=== PATIENT | male | born 1965 | race Caucasian/White ===

== ENCOUNTER 2017-04-09 14:12 | Outpatient (CLI) | payer OTHER ==
[~2017-04-09 14:12] MED LIST: ASPI-1071 PO; ATOR40TA PO; CHOL200012 PO; CLOP75TA35 PO; DOCU-28 PO; HYDR-565 PO; LISI-222 PO; METF500T PO; METO25TA6 PO; MULT-1085 PO; NITR0.4T48 SL; VITA1TAB20 PO
[2017-04-09 14:57] LABS: CLARITY,URINE CLEAR (Clear); COLOR,URINE YELLOW (Yellow); GLUCOSE, URINE NEGATIVE (Neg); KETONES,URINE NEGATIVE (Neg); LEUKOCYTE ESTERASE ,URINE NEGATIVE (Neg); NITRITES, URINE NEGATIVE (Neg); OCCULT BLOOD,URINE TRACE-INTACT (Neg); PROTEIN,URINE NEGATIVE (Neg); UROBILINOGEN,URINE 0.2 E.U/dL (0.2-1.0)
[2017-04-09 15:00] LABS: BASOPHILS # (AUTO) 0.1 X10'3 (0-0.2); BASOPHILS % (AUTO) 0.6 % (0-1); EOSINOPHILS # (AUTO) 0.3 X10'3 (0-0.9); EOSINOPHILS % (AUTO) 3.8 % (0-6); HEMATOCRIT 43.3 % (42.0-52.0); HEMOGLOBIN 15.2 g/dl (14.0-17.9); LYMPHOCYTES # (AUTO) 3.2 X10'3 (1.1-4.8); LYMPHOCYTES % (AUTO) 36.9 % (21-51); MEAN CORPUSCULAR HEMOGLOBIN 32.6 PG (27.0-31.0); MEAN CORPUSCULAR HGB CONC 35.2 % (33.0-36.5); MEAN CORPUSCULAR VOLUME 92.8 FL (78-98); MONOCYTES % (AUTO) 11.2 % (2-12); NEUTROPHILS # (AUTO) 4.2 X10'3 (1.8-7.7); NEUTROPHILS % (AUTO) 47.5 % (42-75); PLATELET COUNT 220 X10'3 (140-440); RED BLOOD COUNT 4.66 X10'6 (4.70-6.10); RED CELL DISTRIBUTION WIDTH 13.7 % (11.5-14.5); WHITE BLOOD COUNT 8.7 X10'3 (4.5-11.0)
[2017-04-09 15:07] LABS: UA COLLECTION TYPE CLN CATCH MIDSTREAM
[2017-04-09 15:21] LABS: MUCUS STRANDS NONE SEEN /LPF (Neg); SQUAMOUS EPITHELIAL CELL,UR FEW /LPF (FEW)
[2017-04-09 15:22] LABS: BACTERIA,URINE NONE SEEN /HPF (Neg); WBC,URINE NONE SEEN /HPF (0-4)
[2017-04-09 15:40] LABS: ALANINE AMINOTRANSFERASE 39 U/L (12-78); ALBUMIN/GLOBULIN RATIO 1.4 (1.1-1.5); ALKALINE PHOSPHATASE 65 IU/L (46-116); ANION GAP 8 (8-16); ASPARTATE AMINO TRANSFERASE 22 U/L (10-37); BILIRUBIN,TOTAL 0.3 MG/DL (0.1-1.0); BLOOD UREA NITROGEN 18 MG/DL (7-18); CALCIUM 8.6 MG/DL (8.5-10.1); CHLORIDE 105 MMOL/L (99-107); CREATININE 1.38 MG/DL (0.60-1.10); GLUCOSE 108 MG/DL (70-104); POTASSIUM 4.3 MMOL/L (3.5-5.1); SODIUM 141 MMOL/L (135-145); TOTAL CARBON DIOXIDE 27.7 MMOL/L (24-32); TOTAL PROTEIN 6.9 G/DL (6.4-8.2); eGFR 54 ML/MIN
== END 2017-04-09 23:59 | disposition home or self-care (01) ==
LOC: LAB 14:12
PROVIDERS: ATTEND Family Medicine
DX: Z00.01 Encounter for general adult medical examination with abnormal findings (principal); Z87.891 Personal history of nicotine dependence
CPT/HCPCS: 36415; 80053; 81001; 82043; 84439; 84443; 85025

== ENCOUNTER 2017-04-30 06:14 | Outpatient (CLI) | payer OTHER ==
[2017-05-01 07:16] LABS: ALANINE AMINOTRANSFERASE 41 U/L (12-78); ALBUMIN 4.2 G/DL (3.4-5.0); ALBUMIN/GLOBULIN RATIO 1.2 (1.1-1.5); ALKALINE PHOSPHATASE 66 IU/L (46-116); ANION GAP 12 (8-16); ASPARTATE AMINO TRANSFERASE 29 U/L (10-37); BILIRUBIN,TOTAL 0.5 MG/DL (0.1-1.0); BLOOD UREA NITROGEN 18 MG/DL (7-18); BUN/CREATININE RATIO 14.1 (5.4-32.0); CALCIUM 9.2 MG/DL (8.5-10.1); CHLORIDE 106 MMOL/L (99-107); CHOLESTEROL 134 MG/DL (0-200); CREATININE 1.28 MG/DL (0.60-1.10); GLUCOSE 137 MG/DL (70-104); HDL CHOLESTEROL 45 MG/DL (35-60); LDL CHOLESTEROL 67 MG/DL (50-100); POTASSIUM 4.5 MMOL/L (3.5-5.1); SODIUM 142 MMOL/L (135-145); TOTAL CARBON DIOXIDE 24.3 MMOL/L (24-32); TOTAL PROTEIN 7.7 G/DL (6.4-8.2); TRIGLYCERIDES 104 MG/DL (20-135); eGFR 59 ML/MIN
== END 2017-04-30 23:59 | disposition home or self-care (01) ==
LOC: LAB 06:14
PROVIDERS: ATTEND Physician Assistant Medical
DX: E78.4 Other hyperlipidemia (principal); E11.9 Type 2 diabetes mellitus without complications; Z87.891 Personal history of nicotine dependence
CPT/HCPCS: 36415; 80053; 80061

== ENCOUNTER 2017-05-22 05:56 | Day surgery (SDC) | payer OTHER ==
[2017-05-21 08:52] LABS: BASOPHILS % (AUTO) 0.5 % (0-1); EOSINOPHILS # (AUTO) 0.3 X10'3 (0-0.9); EOSINOPHILS % (AUTO) 3.9 % (0-6); HEMATOCRIT 44.8 % (42.0-52.0); HEMOGLOBIN 15.4 g/dl (14.0-17.9); LYMPHOCYTES # (AUTO) 2.5 X10'3 (1.1-4.8); LYMPHOCYTES % (AUTO) 28.8 % (21-51); MEAN CORPUSCULAR HEMOGLOBIN 31.9 PG (27.0-31.0); MEAN CORPUSCULAR HGB CONC 34.4 % (33.0-36.5); MEAN CORPUSCULAR VOLUME 92.6 FL (78-98); MEAN PLATELET VOLUME 6.7 FL (7.4-10.4); MONOCYTES # (AUTO) 0.7 X10'3 (0-0.9); MONOCYTES % (AUTO) 8.2 % (2-12); NEUTROPHILS # (AUTO) 5.1 X10'3 (1.8-7.7); NEUTROPHILS % (AUTO) 58.6 % (42-75); PLATELET COUNT 234 X10'3 (140-440); RED BLOOD COUNT 4.84 X10'6 (4.70-6.10); RED CELL DISTRIBUTION WIDTH 13.7 % (11.5-14.5); WHITE BLOOD COUNT 8.8 X10'3 (4.5-11.0)
[2017-05-21 09:01] LABS: ANION GAP 8 (8-16); BLOOD UREA NITROGEN 16 MG/DL (7-18); BUN/CREATININE RATIO 11.2 (5.4-32.0); CALCIUM 8.9 MG/DL (8.5-10.1); CHLORIDE 104 MMOL/L (99-107); CREATININE 1.43 MG/DL (0.60-1.10); GLUCOSE 137 MG/DL (70-104); POTASSIUM 4.5 MMOL/L (3.5-5.1); SODIUM 139 MMOL/L (135-145); TOTAL CARBON DIOXIDE 26.9 MMOL/L (24-32); eGFR 52 ML/MIN
[2017-05-21 09:03] LABS: PARTIAL THROMBOPLASTIN TIME 26 SECONDS (22-32); PROTHROMBIN TIME 10.2 SECONDS (9.0-12.0)
[2017-05-22] VITALS (24 sets, daily range): BP systolic 88–128; BP diastolic 50–77
[~2017-05-22] VITALS: Ht 182.9 cm; Wt 112.8 kg
[2017-05-22] MEDS ORDERED: LORazepam 0.5 MG tablet ONE (07:04)
[2017-05-22] MEDS ORDERED: diphenhydrAMINE 25mg capsule PO ONE (07:04)
[2017-05-22] MEDS ORDERED: heparin 1,000unit/ml 10ml vial 10 ML ONE (07:32)
[2017-05-22] MEDS ORDERED: nitroGLYCERIN-Tridil 50MG/D5W 250 ML IV ONE (07:32)
[2017-05-22] MEDS ORDERED: midazolam 2 mg/2 ml injection ONE (07:32)
[2017-05-22] MEDS ORDERED: fentaNYL/PF 50MCG/1 ML 2ML syringe ONE (07:32)
[2017-05-22] MEDS ORDERED: iohexol 350 MG/ML 50ML vial IV ONE (07:32)
[2017-05-22] MEDS ORDERED: LIDOcaine 1%/PF (10mg/ml) 5ml vial ONE (07:32)
[2017-05-22] MEDS ORDERED: iohexol 350MG/ML 100ml bottle IV ONE ×2 (07:33→08:51)
[2017-05-22] MEDS ORDERED: heparin 1,000 UNITS/NS 500ml 500 ML ONE (08:51)
[2017-05-22] MEDS ORDERED: atropine 0.1mg/ml 10ml syringe ONE (08:58)
[2017-05-22] MEDS ORDERED: normal saline 1000ml 1,000 ML IV SCH ×2 (09:20→11:15)
[2017-05-22] MEDS ORDERED: diphenhydrAMINE 25mg capsule PO PRN ×2 (09:20→11:15)
[2017-05-22] MEDS ORDERED: LORazepam 0.5 MG tablet PO PRN ×2 (09:20→11:15)
[2017-05-22] MEDS ORDERED: sod bicarbonate 150mEq in D5W 1,150 ML IV ONE (09:20)
[2017-05-22] MEDS ORDERED: clopidogrel 300mg tablet ONE (09:49)
[2017-05-22] MEDS ORDERED: acetaminophen 325mg tablet PO PRN (11:00)
[2017-05-22] MEDS ORDERED: HYDROcodone/acetaminophen 10/325mg tab PO PRN (11:00)
[2017-05-22] MEDS ORDERED: aspirin 325mg tablet PO ONE (11:00)
[2017-05-22] MEDS ORDERED: OXAZEpam 15mg capsule PO PRN (11:00)
[2017-05-22] MEDS ORDERED: cyclobenzaprine 10mg tablet PO PRN (11:00)
[2017-05-22] MEDS ORDERED: proCHLORperazine 10 MG/2 ml inj IV PRN (11:00)
[2017-05-22] MEDS ORDERED: CLOPIDOGREL BISULFATE 300MG TAB PO ONE (11:00)
[2017-05-22] MEDS ORDERED: magnesium hydroxide 30ml (MOM) UD suspension PO PRN (11:00)
[2017-05-22] MEDS ORDERED: ESCI10TA PO (14:14)
[2017-05-22] MEDS ORDERED: RANO500T3 PO (14:14)
[2017-05-22] MEDS ORDERED: ISOS60TA4 PO (14:14)
[2017-05-22] MEDS ORDERED: METF500T PO (14:14)
[2017-05-22] MEDS ORDERED: docusate sod 100mg capsule PO SCH (20:00)
[2017-05-23] MEDS ORDERED: clopidogrel 75mg tablet PO SCH (08:00)
[2017-05-23] MEDS ORDERED: aspirin 325mg tablet PO SCH (08:30)
== END 2017-05-22 18:50 | disposition home or self-care (01) ==
LOC: SSTAY O 05:56
PROVIDERS: ATTEND Internal Medicine Cardiovascular Disease
DX: I25.119 Atherosclerotic heart disease of native coronary artery with unspecified angina pectoris (principal); I10 Essential (primary) hypertension; E78.5 Hyperlipidemia, unspecified; E11.9 Type 2 diabetes mellitus without complications; I25.2 Old myocardial infarction; E66.3 Overweight; K21.9 Gastro-esophageal reflux disease without esophagitis; Z87.891 Personal history of nicotine dependence; Z90.49 Acquired absence of other specified parts of digestive tract; Z79.84 Long term (current) use of oral hypoglycemic drugs; Z79.82 Long term (current) use of aspirin; Z86.74 Personal history of sudden cardiac arrest; Z95.5 Presence of coronary angioplasty implant and graft; Z79.899 Other long term (current) drug therapy; Z98.890 Other specified postprocedural states; Z68.33 Body mass index [BMI] 33.0-33.9, adult; Z88.6 Allergy status to analgesic agent; Z88.1 Allergy status to other antibiotic agents
CPT/HCPCS: 36415; 80048; 82948; 85025; 85347; 85610; 85730; 92920; 93005; 93458; 99152; 99153; A6257; C1725; C1769; C1874; C1887; J1644; J2001; J2250; J3010; J3490; J7030; Q0163; Q9967; A4620; J0461

== ENCOUNTER 2017-08-01 11:14 | Outpatient (CLI) | payer OTHER ==
[~2017-08-01 11:14] MED LIST changes: -DOCU-28 PO; +ESCI10TA PO; +ISOS60TA4 PO; +RANO500T3 PO
[2017-08-01 13:23] LABS: RHEUM FACTOR QUAL REFLEX TITER NEGATIVE (Neg)
== END 2017-08-01 23:59 | disposition home or self-care (01) ==
LOC: LAB 11:14
PROVIDERS: ATTEND Family Medicine
DX: E11.9 Type 2 diabetes mellitus without complications (principal); M19.90 Unspecified osteoarthritis, unspecified site; Z87.891 Personal history of nicotine dependence
CPT/HCPCS: 36415; 84550; 85651; 86038; 86430

== ENCOUNTER 2017-11-12 06:02 | Outpatient (CLI) | payer OTHER ==
[2017-11-12 08:27] LABS: BASOPHILS % (AUTO) 0.5 % (0-1); EOSINOPHILS # (AUTO) 0.2 X10'3 (0-0.9); EOSINOPHILS % (AUTO) 3.2 % (0-6); HEMATOCRIT 43.1 % (42.0-52.0); HEMOGLOBIN 14.8 g/dl (14.0-17.9); LYMPHOCYTES # (AUTO) 2.3 X10'3 (1.1-4.8); LYMPHOCYTES % (AUTO) 29.9 % (21-51); MEAN CORPUSCULAR HGB CONC 34.2 % (33.0-36.5); MEAN CORPUSCULAR VOLUME 93.6 FL (78-98); MEAN PLATELET VOLUME 7.3 FL (7.4-10.4); MONOCYTES # (AUTO) 0.7 X10'3 (0-0.9); MONOCYTES % (AUTO) 9.1 % (2-12); NEUTROPHILS # (AUTO) 4.3 X10'3 (1.8-7.7); NEUTROPHILS % (AUTO) 57.3 % (42-75); PLATELET COUNT 266 X10'3 (140-440); RED BLOOD COUNT 4.61 X10'6 (4.70-6.10); WHITE BLOOD COUNT 7.6 X10'3 (4.5-11.0)
[2017-11-12 08:30] LABS: CLARITY,URINE CLEAR (Clear); COLOR,URINE YELLOW (Yellow); GLUCOSE, URINE NEGATIVE (Neg); KETONES,URINE NEGATIVE (Neg); LEUKOCYTE ESTERASE ,URINE NEGATIVE (Neg); NITRITES, URINE NEGATIVE (Neg); OCCULT BLOOD,URINE TRACE-INTACT (Neg); PROTEIN,URINE NEGATIVE (Neg); UROBILINOGEN,URINE 0.2 E.U/dL (0.2-1.0)
[2017-11-12 08:37] LABS: UA COLLECTION TYPE CLN CATCH MIDSTREAM
[2017-11-12 08:38] LABS: BACTERIA,URINE NONE SEEN /HPF (Neg); HEMOGLOBIN A1C 6.2 % (4.5-6.2); MUCUS STRANDS NONE SEEN /LPF (Neg); RBC,URINE 0-2 /HPF (0-2); SQUAMOUS EPITHELIAL CELL,UR FEW /LPF (FEW); WBC,URINE NONE SEEN /HPF (0-4)
[2017-11-12 08:49] LABS: ALANINE AMINOTRANSFERASE 30 U/L (12-78); ALBUMIN 3.9 G/DL (3.4-5.0); ALBUMIN/GLOBULIN RATIO 1.3 (1.1-1.5); ALKALINE PHOSPHATASE 66 IU/L (46-116); ANION GAP 7 (8-16); ASPARTATE AMINO TRANSFERASE 20 U/L (10-37); BILIRUBIN,TOTAL 0.5 MG/DL (0.1-1.0); BLOOD UREA NITROGEN 17 MG/DL (7-18); BUN/CREATININE RATIO 12.2 (5.4-32.0); CALCIUM 8.7 MG/DL (8.5-10.1); CHLORIDE 106 MMOL/L (99-107); CHOL/HDL RATIO 2.7 (0.00-4.99); CHOLESTEROL 119 MG/DL (0-200); CREATININE 1.39 MG/DL (0.60-1.10); GLUCOSE 124 MG/DL (70-104); HDL CHOLESTEROL 44 MG/DL (35-60); LDL CHOLESTEROL 67 MG/DL (50-100); POTASSIUM 4.2 MMOL/L (3.5-5.1); SODIUM 140 MMOL/L (135-145); TOTAL CARBON DIOXIDE 26.7 MMOL/L (24-32); TOTAL PROTEIN 6.9 G/DL (6.4-8.2); TRIGLYCERIDES 81 MG/DL (20-135); eGFR 53 ML/MIN
[2017-11-13 16:04] LABS: MICROALB/CRT, RATIO 3.8 mg/g creat (0.0-30.0)
== END 2017-11-12 23:59 | disposition home or self-care (01) ==
LOC: LAB 06:02
PROVIDERS: ATTEND Family Medicine
DX: Z00.01 Encounter for general adult medical examination with abnormal findings (principal); I25.2 Old myocardial infarction; E11.9 Type 2 diabetes mellitus without complications; Z87.891 Personal history of nicotine dependence; Z79.82 Long term (current) use of aspirin; Z79.84 Long term (current) use of oral hypoglycemic drugs; Z79.899 Other long term (current) drug therapy
CPT/HCPCS: 36415; 80053; 80061; 81001; 82043; 82570; 83036; 84439; 84443; 85025

== ENCOUNTER 2018-01-21 07:44 | Outpatient (CLI) | payer OTHER ==
[~2018-01-21 07:44] MED LIST changes: +HYDR-4353 PO; -HYDR-565 PO
[2018-01-21 08:18] LABS: BASOPHILS % (AUTO) 0.3 % (0-1); EOSINOPHILS # (AUTO) 0.7 X10'3 (0-0.9); EOSINOPHILS % (AUTO) 8.1 % (0-6); HEMATOCRIT 46.5 % (42.0-52.0); HEMOGLOBIN 15.4 g/dl (14.0-17.9); LYMPHOCYTES # (AUTO) 2.2 X10'3 (1.1-4.8); LYMPHOCYTES % (AUTO) 27.2 % (21-51); MEAN CORPUSCULAR HEMOGLOBIN 31.9 PG (27.0-31.0); MEAN CORPUSCULAR HGB CONC 33.2 % (33.0-36.5); MEAN CORPUSCULAR VOLUME 96.1 FL (78-98); MEAN PLATELET VOLUME 6.8 FL (7.4-10.4); MONOCYTES # (AUTO) 1.1 X10'3 (0-0.9); MONOCYTES % (AUTO) 13.1 % (2-12); NEUTROPHILS # (AUTO) 4.2 X10'3 (1.8-7.7); NEUTROPHILS % (AUTO) 51.3 % (42-75); PLATELET COUNT 247 X10'3 (140-440); RED BLOOD COUNT 4.84 X10'6 (4.70-6.10); RED CELL DISTRIBUTION WIDTH 13.9 % (11.5-14.5); WHITE BLOOD COUNT 8.2 X10'3 (4.5-11.0)
[2018-01-21 08:28] LABS: CLARITY,URINE CLEAR (Clear); COLOR,URINE YELLOW (Yellow); GLUCOSE, URINE NEGATIVE (Neg); KETONES,URINE NEGATIVE (Neg); LEUKOCYTE ESTERASE ,URINE NEGATIVE (Neg); NITRITES, URINE NEGATIVE (Neg); OCCULT BLOOD,URINE NEGATIVE (Neg); PROTEIN,URINE NEGATIVE (Neg); UROBILINOGEN,URINE 0.2 E.U/dL (0.2-1.0)
[2018-01-21 08:32] LABS: HEMOGLOBIN A1C 6.2 % (4.5-6.2)
[2018-01-21 08:35] LABS: UA COLLECTION TYPE VOIDED
[2018-01-21 08:44] LABS: ALANINE AMINOTRANSFERASE 32 U/L (12-78); ALBUMIN 3.7 G/DL (3.4-5.0); ALBUMIN/GLOBULIN RATIO 1.1 (1.1-1.5); ALKALINE PHOSPHATASE 67 IU/L (46-116); ANION GAP 7 (8-16); ASPARTATE AMINO TRANSFERASE 26 U/L (10-37); BILIRUBIN,TOTAL 0.4 MG/DL (0.1-1.0); BLOOD UREA NITROGEN 14 MG/DL (7-18); BUN/CREATININE RATIO 10.2 (5.4-32.0); CHLORIDE 104 MMOL/L (99-107); CHOL/HDL RATIO 3.2 (0.00-4.99); CHOLESTEROL 141 MG/DL (0-200); CREATININE 1.37 MG/DL (0.60-1.10); GLUCOSE 131 MG/DL (70-104); HDL CHOLESTEROL 44 MG/DL (35-60); LDL CHOLESTEROL 82 MG/DL (50-100); POTASSIUM 4.2 MMOL/L (3.5-5.1); SODIUM 143 MMOL/L (135-145); TOTAL CARBON DIOXIDE 32.5 MMOL/L (24-32); TOTAL PROTEIN 7.1 G/DL (6.4-8.2); TRIGLYCERIDES 121 MG/DL (20-135); eGFR 54 ML/MIN
[2018-01-22 13:18] LABS: MICROALB/CRT, RATIO <4.3 mg/g creat (0.0-30.0)
== END 2018-01-21 23:59 | disposition home or self-care (01) ==
LOC: LAB 07:44
PROVIDERS: ATTEND Family Medicine
DX: E11.9 Type 2 diabetes mellitus without complications (principal); I25.2 Old myocardial infarction; Z88.1 Allergy status to other antibiotic agents; Z88.5 Allergy status to narcotic agent
CPT/HCPCS: 36415; 80053; 80061; 81003; 82043; 82570; 83036; 84439; 84443; 85025

== ENCOUNTER 2018-07-23 07:40 | Outpatient (CLI) | payer OTHER ==
[2018-07-23 08:30] LABS: BASOPHILS # (AUTO) 0.1 X10'3 (0-0.2); EOSINOPHILS # (AUTO) 0.4 X10'3 (0-0.9); EOSINOPHILS % (AUTO) 4.9 % (0-6); HEMATOCRIT 45.4 % (42.0-52.0); HEMOGLOBIN 15.7 g/dl (14.0-17.9); LYMPHOCYTES # (AUTO) 2.2 X10'3 (1.1-4.8); LYMPHOCYTES % (AUTO) 26.6 % (21-51); MEAN CORPUSCULAR HEMOGLOBIN 32.5 PG (27.0-31.0); MEAN CORPUSCULAR HGB CONC 34.5 g/dL (33.0-36.5); MEAN CORPUSCULAR VOLUME 94.3 FL (78-98); MONOCYTES % (AUTO) 11.9 % (2-12); NEUTROPHILS # (AUTO) 4.7 X10'3 (1.8-7.7); NEUTROPHILS % (AUTO) 55.6 % (42-75); PLATELET COUNT 258 X10'3 (140-440); RED BLOOD COUNT 4.82 X10'6 (4.70-6.10); RED CELL DISTRIBUTION WIDTH 13.4 % (11.5-14.5); WHITE BLOOD COUNT 8.4 X10'3 (4.5-11.0)
[2018-07-23 08:34] LABS: CLARITY,URINE CLEAR (Clear); COLOR,URINE YELLOW (Yellow); GLUCOSE, URINE NEGATIVE (Neg); KETONES,URINE NEGATIVE (Neg); LEUKOCYTE ESTERASE ,URINE NEGATIVE (Neg); NITRITES, URINE NEGATIVE (Neg); OCCULT BLOOD,URINE NEGATIVE (Neg); PROTEIN,URINE NEGATIVE (Neg); UROBILINOGEN,URINE 0.2 E.U/dL (0.2-1.0)
[2018-07-23 08:46] LABS: UA COLLECTION TYPE NON-SPECIFIED
[2018-07-23 08:51] LABS: ALANINE AMINOTRANSFERASE 36 U/L (12-78); ALBUMIN/GLOBULIN RATIO 1.2 (1.1-1.5); ALKALINE PHOSPHATASE 74 IU/L (46-116); ANION GAP 7 (8-16); ASPARTATE AMINO TRANSFERASE 23 U/L (10-37); BILIRUBIN,TOTAL 0.5 MG/DL (0.1-1.0); BLOOD UREA NITROGEN 17 MG/DL (7-18); BUN/CREATININE RATIO 13.1 (5.4-32.0); CALCIUM 8.8 MG/DL (8.5-10.1); CHLORIDE 104 MMOL/L (99-107); CHOL/HDL RATIO 3.3 (0.00-4.99); CHOLESTEROL 127 MG/DL (0-200); GLUCOSE 134 MG/DL (70-104); HDL CHOLESTEROL 38 MG/DL (35-60); LDL CHOLESTEROL 76 MG/DL (50-100); POTASSIUM 4.3 MMOL/L (3.5-5.1); SODIUM 139 MMOL/L (135-145); TOTAL CARBON DIOXIDE 27.7 MMOL/L (24-32); TOTAL PROTEIN 7.4 G/DL (6.4-8.2); TRIGLYCERIDES 117 MG/DL (20-135); eGFR 57 ML/MIN
[2018-07-23 09:30] LABS: HEMOGLOBIN A1C 6.2 % (4.5-6.2)
== END 2018-07-23 23:59 | disposition home or self-care (01) ==
LOC: LAB 07:40
PROVIDERS: ATTEND Family Medicine
DX: I10 Essential (primary) hypertension (principal); E11.9 Type 2 diabetes mellitus without complications; E78.5 Hyperlipidemia, unspecified; R06.02 Shortness of breath
CPT/HCPCS: 36415; 80053; 80061; 81003; 82043; 82570; 83036; 84402; 84403; 85025

== ENCOUNTER 2018-07-26 14:48 | Outpatient (CLI) | payer OTHER | END 2018-07-26 23:59 | disposition home or self-care (01) | LOC: CARD DIAG 14:48 | PROVIDERS: ATTEND Internal Medicine Cardiovascular Disease | DX: I25.10 Atherosclerotic heart disease of native coronary artery without angina pectoris (principal) | CPT/HCPCS: 93306 ==

== ENCOUNTER 2018-09-18 07:56 | Outpatient (CLI) | payer OTHER ==
[~2018-09-18] VITALS: Ht 182.9 cm; Wt 52.6 kg
[2018-09-18] VITALS (10 sets, daily range): BP systolic 108–121; BP diastolic 61–69
[2018-09-18] MEDS ORDERED: normal saline 500ml IV soln 500 ML IV ONE (08:40)
[2018-09-18] MEDS ORDERED: atropine 0.1mg/ml 10ml syringe IV PRN (08:40)
[2018-09-18] MEDS ORDERED: nitroGLYCERIN 0.4mg SUBLingual tab SL PRN (08:40)
[2018-09-18] MEDS ORDERED: regadenoson 0.4mg/5ml syringe IV ONE (08:40)
[2018-09-18] MEDS ORDERED: aminophylline 250mg/10ml inj. IV PRN (08:40)
[2018-09-18] MEDS ORDERED: metoprolol tartrate 1mg/ml inj IV PRN (08:40)
[2018-09-18] MEDS ORDERED: aminophylline inj. 10 ML IV ONE (09:23)
== END 2018-09-18 23:59 | disposition home or self-care (01) ==
LOC: RAD 07:56
PROVIDERS: ATTEND Internal Medicine Cardiovascular Disease
DX: R07.9 Chest pain, unspecified (principal); E11.9 Type 2 diabetes mellitus without complications; Z88.5 Allergy status to narcotic agent; Z88.1 Allergy status to other antibiotic agents; Z95.5 Presence of coronary angioplasty implant and graft; Z87.891 Personal history of nicotine dependence
CPT/HCPCS: 78452; 93017; A9500; J0280; J2785; J7040

== ENCOUNTER 2018-11-12 08:51 | Outpatient (CLI) | payer OTHER | END 2018-11-12 23:59 | disposition home or self-care (01) | LOC: RAD 08:51 | PROVIDERS: ATTEND Family Medicine | DX: M25.462 Effusion, left knee (principal); M76.892 Other specified enthesopathies of left lower limb, excluding foot; M81.0 Age-related osteoporosis without current pathological fracture; E11.9 Type 2 diabetes mellitus without complications; Z87.891 Personal history of nicotine dependence | CPT/HCPCS: 73560 ==

== ENCOUNTER 2019-02-18 08:50 | Outpatient (CLI) | payer OTHER ==
[2019-02-18 09:43] LABS: CLARITY,URINE CLEAR (Clear); COLOR,URINE YELLOW (Yellow); GLUCOSE, URINE NEGATIVE (Neg); KETONES,URINE NEGATIVE (Neg); LEUKOCYTE ESTERASE ,URINE NEGATIVE (Neg); NITRITES, URINE NEGATIVE (Neg); OCCULT BLOOD,URINE NEGATIVE (Neg); PH,URINE 6.5 (4.8-8.0); PROTEIN,URINE NEGATIVE (Neg); UROBILINOGEN,URINE 0.2 E.U/dL (0.2-1.0)
[2019-02-18 09:45] LABS: BASOPHILS # (AUTO) 0.1 X10'3 (0-0.2); BASOPHILS % (AUTO) 0.7 % (0-1); EOSINOPHILS # (AUTO) 0.3 X10'3 (0-0.9); EOSINOPHILS % (AUTO) 4.3 % (0-6); HEMOGLOBIN 16.7 g/dl (14.0-17.9); LYMPHOCYTES # (AUTO) 2.7 X10'3 (1.1-4.8); LYMPHOCYTES % (AUTO) 33.8 % (21-51); MEAN CORPUSCULAR HEMOGLOBIN 31.7 PG (27.0-31.0); MEAN CORPUSCULAR VOLUME 93.4 FL (78-98); MEAN PLATELET VOLUME 6.9 FL (7.4-10.4); MONOCYTES # (AUTO) 0.7 X10'3 (0-0.9); MONOCYTES % (AUTO) 8.8 % (2-12); NEUTROPHILS # (AUTO) 4.2 X10'3 (1.8-7.7); NEUTROPHILS % (AUTO) 52.4 % (42-75); PLATELET COUNT 258 X10'3 (140-440); RED BLOOD COUNT 5.25 X10'6 (4.70-6.10); RED CELL DISTRIBUTION WIDTH 13.4 % (11.5-14.5)
[2019-02-18 09:47] LABS: UA COLLECTION TYPE CLN CATCH MIDSTREAM
[2019-02-18 10:06] LABS: ALANINE AMINOTRANSFERASE 34 U/L (12-78); ALBUMIN 3.9 G/DL (3.4-5.0); ALBUMIN/GLOBULIN RATIO 1.1 (1.1-1.5); ALKALINE PHOSPHATASE 80 IU/L (46-116); ANION GAP 6 (8-16); ASPARTATE AMINO TRANSFERASE 22 U/L (10-37); BILIRUBIN,TOTAL 0.4 MG/DL (0.1-1.0); BLOOD UREA NITROGEN 16 MG/DL (7-18); CALCIUM 9.1 MG/DL (8.5-10.1); CHLORIDE 106 MMOL/L (99-107); CHOLESTEROL 155 MG/DL (0-200); CREATININE 1.45 MG/DL (0.60-1.10); GLUCOSE 146 MG/DL (70-104); HDL CHOLESTEROL 39 MG/DL (35-60); LDL CHOLESTEROL 103 MG/DL (50-100); POTASSIUM 4.4 MMOL/L (3.5-5.1); SODIUM 141 MMOL/L (135-145); TOTAL CARBON DIOXIDE 28.8 MMOL/L (24-32); TOTAL PROTEIN 7.3 G/DL (6.4-8.2); TRIGLYCERIDES 108 MG/DL (20-135); eGFR 51 ML/MIN
[2019-02-18 10:16] LABS: HEMOGLOBIN A1C 6.5 % (4.5-6.2)
[2019-02-19 05:51] LABS: MICROALB/CRT, RATIO 6.6 mg/g creat (0.0-30.0)
== END 2019-02-18 23:59 | disposition home or self-care (01) ==
LOC: LAB 08:50
PROVIDERS: ATTEND Family Medicine
DX: E78.5 Hyperlipidemia, unspecified (principal); E11.9 Type 2 diabetes mellitus without complications; I10 Essential (primary) hypertension; I25.2 Old myocardial infarction; Z88.5 Allergy status to narcotic agent; Z88.8 Allergy status to other drugs, medicaments and biological substances
CPT/HCPCS: 36415; 80053; 80061; 81003; 82043; 82570; 83036; 85025

== ENCOUNTER 2019-04-21 08:26 | Day surgery (SDC) | payer OTHER ==
[~2019-04-21] VITALS: Ht 180.3 cm; Wt 117.3 kg
[2019-04-21] MEDS ORDERED: fentaNYL/PF 50MCG/1 ML 2ML syringe ONE ×2 (08:38→10:22)
[2019-04-21] MEDS ORDERED: MIDAZolam 5mg/5ml vial ONE (08:38)
[2019-04-21 08:39] VITALS: BP 126/67
[2019-04-21] MEDS ORDERED: HYDR-4383 PO (08:59)
[2019-04-21] MEDS ORDERED: ISOS30TA9 PO (09:01)
[2019-04-21 10:37] VITALS: BP 115/68
[2019-04-21 10:47] VITALS: BP 107/68
[2019-04-21 10:57] VITALS: BP 109/68
[2019-04-21 11:07] VITALS: BP 122/55
== END 2019-04-21 11:17 | disposition home or self-care (01) ==
LOC: GI LAB 08:26
PROVIDERS: ATTEND Internal Medicine Gastroenterology
DX: D12.0 Benign neoplasm of cecum (principal); Z86.010 Personal history of colon polyps; K64.8 Other hemorrhoids; K57.30 Diverticulosis of large intestine without perforation or abscess without bleeding
CPT/HCPCS: 45380; J2250; J3010; J7040; 99152; 99153; A4620

== ENCOUNTER 2019-08-26 08:01 | Outpatient (CLI) | payer BC ==
[~2019-08-26 08:01] MED LIST changes: -HYDR-4353 PO; +HYDR-4383 PO; +ISOS30TA9 PO; -ISOS60TA4 PO
[2019-08-26 08:39] LABS: BASOPHILS # (AUTO) 0.1 X10'3 (0-0.2); EOSINOPHILS # (AUTO) 0.4 X10'3 (0-0.9); EOSINOPHILS % (AUTO) 4.1 % (0-6); HEMATOCRIT 47.6 % (42.0-52.0); LYMPHOCYTES # (AUTO) 2.8 X10'3 (1.1-4.8); LYMPHOCYTES % (AUTO) 30.3 % (21-51); MEAN CORPUSCULAR HEMOGLOBIN 31.6 PG (27.0-31.0); MEAN CORPUSCULAR HGB CONC 33.5 g/dL (33.0-36.5); MEAN CORPUSCULAR VOLUME 94.4 FL (78-98); MONOCYTES # (AUTO) 0.9 X10'3 (0-0.9); NEUTROPHILS % (AUTO) 54.6 % (42-75); PLATELET COUNT 239 X10'3 (140-440); RED BLOOD COUNT 5.04 X10'6 (4.70-6.10); RED CELL DISTRIBUTION WIDTH 13.4 % (11.5-14.5); WHITE BLOOD COUNT 9.2 X10'3 (4.5-11.0)
[2019-08-26 08:44] LABS: CLARITY,URINE CLEAR (Clear); COLOR,URINE YELLOW (Yellow); GLUCOSE, URINE NEGATIVE (Neg); KETONES,URINE NEGATIVE (Neg); LEUKOCYTE ESTERASE ,URINE NEGATIVE (Neg); NITRITES, URINE NEGATIVE (Neg); OCCULT BLOOD,URINE TRACE-INTACT (Neg); PROTEIN,URINE NEGATIVE (Neg); UROBILINOGEN,URINE 0.2 E.U/dL (0.2-1.0)
[2019-08-26 08:45] LABS: UA COLLECTION TYPE CLN CATCH MIDSTREAM
[2019-08-26 08:46] LABS: SQUAMOUS EPITHELIAL CELL,UR FEW /LPF (FEW)
[2019-08-26 08:47] LABS: BACTERIA,URINE 1+ /HPF (Neg); RBC,URINE 0-2 /HPF (0-2); WBC,URINE 0-4 /HPF (0-4)
[2019-08-26 08:48] LABS: HEMOGLOBIN A1C 6.5 % (4.5-6.2)
[2019-08-26 08:54] LABS: ALANINE AMINOTRANSFERASE 33 U/L (12-78); ALBUMIN/GLOBULIN RATIO 1.2 (1.1-1.5); ALKALINE PHOSPHATASE 68 IU/L (46-116); ANION GAP 8 (8-16); ASPARTATE AMINO TRANSFERASE 22 U/L (10-37); BILIRUBIN,TOTAL 0.4 MG/DL (0.1-1.0); BLOOD UREA NITROGEN 20 MG/DL (7-18); BUN/CREATININE RATIO 14.8 (5.4-32.0); CALCIUM 8.8 MG/DL (8.5-10.1); CHLORIDE 107 MMOL/L (99-107); CREATININE 1.35 MG/DL (0.60-1.10); GLUCOSE 133 MG/DL (70-104); POTASSIUM 4.7 MMOL/L (3.5-5.1); SODIUM 141 MMOL/L (135-145); TOTAL CARBON DIOXIDE 25.6 MMOL/L (24-32); TOTAL PROTEIN 7.3 G/DL (6.4-8.2); eGFR 55 ML/MIN
== END 2019-08-26 23:59 | disposition home or self-care (01) ==
LOC: LAB 08:01
PROVIDERS: ATTEND Family Medicine
DX: E11.9 Type 2 diabetes mellitus without complications (principal)
CPT/HCPCS: 36415; 80053; 81001; 82043; 82570; 83036; 85025

== ENCOUNTER → 2019-09-05 | Outpatient (CLI) | payer BC | END | disposition home or self-care (01) | LOC: CARD DIAG 12:35 | PROVIDERS: ATTEND Internal Medicine Cardiovascular Disease | DX: I35.8 Other nonrheumatic aortic valve disorders (principal); R53.83 Other fatigue | CPT/HCPCS: 93306 ==

== ENCOUNTER 2019-09-11 07:36 | Outpatient (CLI) | payer BC ==
[2019-09-11 08:17] LABS: CHOL/HDL RATIO 3.5 (0.00-4.99); CHOLESTEROL 124 MG/DL (0-200); HDL CHOLESTEROL 35 MG/DL (35-60); LDL CHOLESTEROL 73 MG/DL (50-100); TRIGLYCERIDES 102 MG/DL (20-135)
[2019-09-11 08:33] LABS: ANION GAP 7 (8-16); BILIRUBIN,TOTAL 0.4 MG/DL (0.1-1.0); BLOOD UREA NITROGEN 20 MG/DL (7-18); BUN/CREATININE RATIO 14.4 (5.4-32.0); CALCIUM 8.4 MG/DL (8.5-10.1); CHLORIDE 106 MMOL/L (99-107); CREATININE 1.39 MG/DL (0.60-1.10); GLUCOSE 149 MG/DL (70-104); POTASSIUM 4.4 MMOL/L (3.5-5.1); SODIUM 139 MMOL/L (135-145); TOTAL CARBON DIOXIDE 26.3 MMOL/L (24-32); eGFR 53 ML/MIN
[2019-09-11 08:34] LABS: ALANINE AMINOTRANSFERASE 34 U/L (12-78); ALBUMIN 3.8 G/DL (3.4-5.0); ALBUMIN/GLOBULIN RATIO 1.2 (1.1-1.5); ALKALINE PHOSPHATASE 68 IU/L (46-116); ASPARTATE AMINO TRANSFERASE 23 U/L (10-37)
== END 2019-09-11 23:59 | disposition home or self-care (01) ==
LOC: LAB 07:36
PROVIDERS: ATTEND Physician Assistant Medical
DX: E78.5 Hyperlipidemia, unspecified (principal)
CPT/HCPCS: 36415; 80053; 80061

== ENCOUNTER 2019-09-11 07:39 | Outpatient (CLI) | payer BC ==
[2019-09-11] VITALS (7 sets, daily range): BP systolic 101–119; BP diastolic 54–78
[~2019-09-11] VITALS: Ht 180.3 cm; Wt 116.0 kg
[2019-09-11] MEDS ORDERED: regadenoson 0.4mg/5ml syringe IV PRN (08:30)
[2019-09-11] MEDS ORDERED: nitroGLYCERIN 0.4mg SUBLingual tab SL PRN (08:30)
[2019-09-11] MEDS ORDERED: normal saline 500ml IV soln 500 ML IV ONE (08:30)
[2019-09-11] MEDS ORDERED: metoprolol tartrate 1mg/ml inj IV PRN (08:30)
[2019-09-11] MEDS ORDERED: aminophylline 250mg/10ml inj. IV PRN (08:30)
[2019-09-11] MEDS ORDERED: regadenoson 0.4mg/5ml syringe IV ONE (08:30)
== END 2019-09-11 23:59 | disposition home or self-care (01) ==
LOC: RAD 07:39
PROVIDERS: ATTEND Internal Medicine Cardiovascular Disease
DX: R07.9 Chest pain, unspecified (principal)
CPT/HCPCS: 78452; 93017; A9500; J0280; J2785; J7040

== ENCOUNTER 2020-03-09 09:30 | Outpatient (CLI) | payer BC ==
[~2020-03-09 09:30] MED LIST changes: +CLOP75TA34 PO; -CLOP75TA35 PO
[2020-03-09 10:27] LABS: CLARITY,URINE CLEAR (Clear); COLOR,URINE YELLOW (Yellow); GLUCOSE, URINE NEGATIVE (Neg); KETONES,URINE NEGATIVE (Neg); LEUKOCYTE ESTERASE ,URINE NEGATIVE (Neg); NITRITES, URINE NEGATIVE (Neg); OCCULT BLOOD,URINE NEGATIVE (Neg); PH,URINE 5.5 (4.8-8.0); PROTEIN,URINE NEGATIVE (Neg); UROBILINOGEN,URINE 0.2 E.U/dL (0.2-1.0)
[2020-03-09 10:39] LABS: UA COLLECTION TYPE CLN CATCH MIDSTREAM
[2020-03-09 10:58] LABS: BASOPHILS # (AUTO) 0.1 X10'3 (0-0.2); EOSINOPHILS # (AUTO) 0.3 X10'3 (0-0.9); EOSINOPHILS % (AUTO) 4.5 % (0-6); HEMATOCRIT 46.7 % (42.0-52.0); HEMOGLOBIN 15.8 g/dl (14.0-17.9); LYMPHOCYTES # (AUTO) 2.3 X10'3 (1.1-4.8); MEAN CORPUSCULAR HEMOGLOBIN 32.3 PG (27.0-31.0); MEAN CORPUSCULAR VOLUME 95.1 FL (78-98); MONOCYTES # (AUTO) 0.7 X10'3 (0-0.9); MONOCYTES % (AUTO) 8.6 % (2-12); NEUTROPHILS # (AUTO) 4.5 X10'3 (1.8-7.7); NEUTROPHILS % (AUTO) 56.9 % (42-75); PLATELET COUNT 262 X10'3 (140-440); RED CELL DISTRIBUTION WIDTH 13.8 % (11.5-14.5); WHITE BLOOD COUNT 7.8 X10'3 (4.5-11.0)
[2020-03-09 11:45] LABS: ALANINE AMINOTRANSFERASE 38 U/L (12-78); ALBUMIN 3.9 G/DL (3.4-5.0); ALBUMIN/GLOBULIN RATIO 1.2 (1.1-1.5); ALKALINE PHOSPHATASE 72 IU/L (46-116); ANION GAP 8 (8-16); ASPARTATE AMINO TRANSFERASE 24 U/L (10-37); BILIRUBIN,TOTAL 0.4 MG/DL (0.1-1.0); BLOOD UREA NITROGEN 15 MG/DL (7-18); BUN/CREATININE RATIO 10.9 (5.4-32.0); CALCIUM 8.8 MG/DL (8.5-10.1); CHLORIDE 107 MMOL/L (99-107); CHOL/HDL RATIO 3.4 (0.00-4.99); CHOLESTEROL 131 MG/DL (0-200); CREATININE 1.38 MG/DL (0.60-1.10); GLUCOSE 161 MG/DL (70-104); HDL CHOLESTEROL 39 MG/DL (35-60); LDL CHOLESTEROL 77 MG/DL (50-100); POTASSIUM 4.8 MMOL/L (3.5-5.1); SODIUM 141 MMOL/L (135-145); TOTAL PROTEIN 7.2 G/DL (6.4-8.2); TRIGLYCERIDES 78 MG/DL (20-135); eGFR 53 ML/MIN
[2020-03-09 16:45] LABS: HEMOGLOBIN A1C 6.5 % (4.5-6.2)
== END 2020-03-09 23:59 | disposition home or self-care (01) ==
LOC: LAB 09:30
PROVIDERS: ATTEND Family Medicine
DX: Z00.00 Encounter for general adult medical examination without abnormal findings (principal); E11.9 Type 2 diabetes mellitus without complications
CPT/HCPCS: 36415; 80053; 80061; 81003; 82043; 82570; 83036; 84439; 84443; 85025

== ENCOUNTER 2020-03-30 10:40 | Outpatient (CLI) | payer BC | END 2020-03-30 23:59 | disposition home or self-care (01) | LOC: RAD 10:40 | PROVIDERS: ATTEND Family Medicine | DX: S83.411A Sprain of medial collateral ligament of right knee, initial encounter (principal); S83.281A Other tear of lateral meniscus, current injury, right knee, initial encounter; M71.21 Synovial cyst of popliteal space [Baker], right knee; M25.761 Osteophyte, right knee; M17.11 Unilateral primary osteoarthritis, right knee; X58.XXXA Exposure to other specified factors, initial encounter; Y93.89 Activity, other specified; Y92.89 Other specified places as the place of occurrence of the external cause; Y99.8 Other external cause status | CPT/HCPCS: 73721 ==

== ENCOUNTER 2020-06-08 19:11 | Emergency (ER) | payer BC, OTHER ==
[~2020-06-08] VITALS: Ht 180.3 cm; Wt 117.3 kg
[~2020-06-08 19:11] MED LIST changes: +LOP25T PO; -METO25TA6 PO
[2020-06-08 19:51] VITALS: BP 115/78
== END 2020-06-08 19:57 | disposition home or self-care (01) ==
LOC: ER 19:12
DX: S93.401A Sprain of unspecified ligament of right ankle, initial encounter (principal); M25.571 Pain in right ankle and joints of right foot; E11.9 Type 2 diabetes mellitus without complications; Z88.1 Allergy status to other antibiotic agents; Z88.5 Allergy status to narcotic agent; Z79.82 Long term (current) use of aspirin; Z79.899 Other long term (current) drug therapy; X58.XXXA Exposure to other specified factors, initial encounter; Y93.89 Activity, other specified; Y92.89 Other specified places as the place of occurrence of the external cause; Y99.8 Other external cause status
CPT/HCPCS: 73610; 99283

== ENCOUNTER 2020-07-29 09:09 | Outpatient (CLI) | payer BC | END 2020-07-29 23:59 | disposition home or self-care (01) | LOC: RAD 09:09 | PROVIDERS: ATTEND Orthopaedic Surgery | DX: S83.282D Other tear of lateral meniscus, current injury, left knee, subsequent encounter (principal); M71.22 Synovial cyst of popliteal space [Baker], left knee; E66.01 Morbid (severe) obesity due to excess calories; I10 Essential (primary) hypertension; E78.5 Hyperlipidemia, unspecified; F17.209 Nicotine dependence, unspecified, with unspecified nicotine-induced disorders; F32.9 Major depressive disorder, single episode, unspecified; I25.10 Atherosclerotic heart disease of native coronary artery without angina pectoris; E11.59 Type 2 diabetes mellitus with other circulatory complications; G89.4 Chronic pain syndrome; X58.XXXD Exposure to other specified factors, subsequent encounter | CPT/HCPCS: 73721 ==

== ENCOUNTER 2020-09-02 05:17 | Day surgery (SDC) | payer BC ==
[2020-08-25 10:35] LABS: BASOPHILS # (AUTO) 0.1 X10'3 (0-0.2); BASOPHILS % (AUTO) 0.9 % (0-1); EOSINOPHILS # (AUTO) 0.3 X10'3 (0-0.9); EOSINOPHILS % (AUTO) 2.7 % (0-6); LYMPHOCYTES # (AUTO) 2.9 X10'3 (1.1-4.8); LYMPHOCYTES % (AUTO) 28.2 % (21-51); MEAN CORPUSCULAR HEMOGLOBIN 32.2 PG (27.0-31.0); MEAN CORPUSCULAR HGB CONC 33.7 g/dL (33.0-36.5); MEAN CORPUSCULAR VOLUME 95.4 FL (78-98); NEUTROPHILS % (AUTO) 58.2 % (42-75); PRE OP HEMATOCRIT 47.2 % (42.0-52.0); PRE OP HEMOGLOBIN 15.9 g/dL (14.0-17.9); PRE OP PLATELET COUNT 265 X10'3 (140-440); RED BLOOD COUNT 4.94 X10'6 (4.70-6.10); RED CELL DISTRIBUTION WIDTH 14.2 % (11.5-14.5)
[2020-08-25 10:40] LABS: HEMOGLOBIN A1C 6.4 % (4.5-6.2)
[2020-08-25 10:49] LABS: ALBUMIN/GLOBULIN RATIO 1.2 (1.1-1.5); ALKALINE PHOSPHATASE 68 IU/L (46-116); BLOOD UREA NITROGEN 17 MG/DL (7-18); BUN/CREATININE RATIO 14.2 (5.4-32.0); CALCIUM 8.9 MG/DL (8.5-10.1); CHLORIDE 104 MMOL/L (99-107); PRE OP ALT 37 U/L (30-65); PRE OP ANION GAP 10 (8-16); PRE OP AST 26 U/L (10-37); PRE OP BILIRUB, TOTAL 0.5 MG/DL (0.0-1.0); PRE OP GLUCOSE 122 MG/DL (70-104); PRE OP POTASSIUM 4.3 MMOL/L (3.4-5.1); PRE OP SODIUM 140 MMOL/L (135-145); TOTAL CARBON DIOXIDE 25.8 MMOL/L (24-32); TOTAL PROTEIN 7.3 G/DL (6.4-8.2); eGFR 62 ML/MIN
[~2020-09-02] VITALS: Ht 180.3 cm; Wt 114.6 kg
[2020-09-02] VITALS (7 sets, daily range): BP systolic 107–134; BP diastolic 68–101
[~2020-09-02 05:17] MED LIST changes: -ESCI10TA PO; +METF-438 PO; -METF500T PO; +ringers solution, lacted 1,000 ML IV SCH
[2020-09-02] MEDS ORDERED: DOCUMENT DATE & TIME OF BETA-BLOCKER PO ONE (05:30)
[2020-09-02] MEDS ORDERED: famotidine 20mg tablet PO ONE (05:30)
[2020-09-02] MEDS ORDERED: cefazolin/dext.iso 2gm/100ml IV ONE (05:30)
[2020-09-02] MEDS ORDERED: vancomycin 1,500 MG in NS 300ml IV soln IV ONE (05:30)
[2020-09-02] MEDS ORDERED: triamcinolone acetonide 40mg/ml inj ONE (06:56)
[2020-09-02] MEDS ORDERED: BUPIVAcaine 0.5% inj/PF 30 ML ONE (06:56)
[2020-09-02] MEDS ORDERED: fentaNYL/PF 50MCG/1 ML 2ML syringe ONE (07:22)
[2020-09-02] MEDS ORDERED: sevoflurane 250ml liquid IH ONE (07:22)
[2020-09-02] MEDS ORDERED: LIDOcaine 1%/PF 5ML 10 MG/ML VIAL ONE (07:22)
[2020-09-02] MEDS ORDERED: midazolam 1 mg/ML 2ml injection ONE (07:22)
[2020-09-02] MEDS ORDERED: propofol inj 20 ML IV ONE (07:24)
[2020-09-02] MEDS ORDERED: morphine 2 MG/ML inj. syringe IV PRN (07:30)
[2020-09-02] MEDS ORDERED: meperidine/PF 25mg/ml syringe IV PRN ×3 (07:30)
[2020-09-02] MEDS ORDERED: morphine 4 MG/ML inj SYRINge IV PRN (07:30)
[2020-09-02] MEDS ORDERED: proCHLORperazine 10 MG/2 ml inj IV PRN (07:30)
[2020-09-02] MEDS ORDERED: ondansetron/PF 4mg/2ml inj IV PRN (07:30)
[2020-09-02] MEDS ORDERED: ringers solution, lacted 1,000 ML IV SCH (07:30)
[2020-09-02] MEDS ORDERED: dexamethasone sod phosphate 4mg/ml inj. ONE (07:48)
[2020-09-02] MEDS ORDERED: ondansetron/PF 4mg/2ml inj ONE (07:48)
[2020-09-02] MEDS ORDERED: BUPIVAcaine/PF 2.5mg/ml (0.25%) 10ml vial ONE (07:55)
[2020-09-02] MEDS ORDERED: ePHEDrine 50MG/ML INJ. ONE (08:27)
--- NOTE | 2020-09-02 08:42 | NUR ---
Received from OR via [facility] , accompanied by Anesthesiologist DONNA and report given by Anesthesiolgist. PATIENT WITH 20G PIV IN LEFT UE RUNNING LR AT 100. DENIES PAIN. RIGHT KNEE WITH BIAS DRESSING PRESENT AND IS CDI. 10L MASK ON WITH 100% SATURATIONS. Addendum: 09/02/20 at 0849 by Ernesto Nowak RN, RN Amended: Links added.
[2020-09-02] MEDS ORDERED: ketorolac trometh. 30mg/ml inj. IV ONE (09:20)
--- NOTE | 2020-09-02 09:55 | NUR ---
ALL DISCHARGE CRITERIA HAS BEEN MET. VSS, PAIN AT A TOLERABLE LEVEL, VOIDING AND ABLE TO SAFELY AMBULATE AND TRANSFER SELF. IV TAKEN OUT WITHOUT ANY COMPLICATIONS. ALL DISCHARGE INSTRUCTIONS COVERED WITH PATIENT AND ALL QUESTIONS ANSWERED. PATIENT TAKEN OUT VIA WHEELCHAIR TO PERSONAL VEHICLE WHERE FAMILY/FRIEND DROVE PATIENT HOME. Addendum: 09/02/20 at 0956 by Ernesto Nowak RN, RN Amended: Links added.
== END 2020-09-02 09:32 | disposition home or self-care (01) ==
LOC: PAS 05:17
PROVIDERS: ATTEND Orthopaedic Surgery
DX: S83.231A Complex tear of medial meniscus, current injury, right knee, initial encounter (principal); S83.271A Complex tear of lateral meniscus, current injury, right knee, initial encounter; M94.261 Chondromalacia, right knee; I25.2 Old myocardial infarction; E11.59 Type 2 diabetes mellitus with other circulatory complications; I25.10 Atherosclerotic heart disease of native coronary artery without angina pectoris; E66.01 Morbid (severe) obesity due to excess calories; Z68.35 Body mass index [BMI] 35.0-35.9, adult; F32.9 Major depressive disorder, single episode, unspecified; I10 Essential (primary) hypertension; M17.0 Bilateral primary osteoarthritis of knee; F17.210 Nicotine dependence, cigarettes, uncomplicated; G89.4 Chronic pain syndrome; Z95.5 Presence of coronary angioplasty implant and graft; Z98.890 Other specified postprocedural states; Z90.49 Acquired absence of other specified parts of digestive tract; Z88.5 Allergy status to narcotic agent; Z88.1 Allergy status to other antibiotic agents; Z79.84 Long term (current) use of oral hypoglycemic drugs; Z79.82 Long term (current) use of aspirin; Z79.899 Other long term (current) drug therapy; Z79.01 Long term (current) use of anticoagulants; Z82.3 Family history of stroke; Z83.3 Family history of diabetes mellitus; Z82.49 Family history of ischemic heart disease and other diseases of the circulatory system; X58.XXXA Exposure to other specified factors, initial encounter; Y93.89 Activity, other specified; Y92.89 Other specified places as the place of occurrence of the external cause; Y99.8 Other external cause status
CPT/HCPCS: 29873; 29879; 29880; 36415; 80053; 82948; 83036; 85025; 93005; J1100; J1885; J2175; J2250; J2405; J2704; J3010; J3301; J3370; J3490; J7040; A4215; A4618; A6250; A6449; A7000; J7120

== ENCOUNTER 2020-10-03 16:22 | Emergency (ER) | payer BC ==
[~2020-10-03] VITALS: Ht 172.7 cm; Wt 115.0 kg
[~2020-10-03 16:22] MED LIST changes: +LIDOcaine 1% 30ml preserv. free vial ONE; -ringers solution, lacted 1,000 ML IV SCH
[2020-10-03] MEDS ORDERED: TETanus/Pertussis (Acell)/Diphther VAC/PF (Tdap-Adult) 0.5ml syringe IMVAC ONE (16:35)
== END 2020-10-03 18:24 | disposition home or self-care (01) ==
LOC: ER 16:22
DX: S61.217A Laceration without foreign body of left little finger without damage to nail, initial encounter (principal); G43.909 Migraine, unspecified, not intractable, without status migrainosus; G40.909 Epilepsy, unspecified, not intractable, without status epilepticus; J44.9 Chronic obstructive pulmonary disease, unspecified; E11.9 Type 2 diabetes mellitus without complications; G89.29 Other chronic pain; F12.90 Cannabis use, unspecified, uncomplicated; Z87.81 Personal history of (healed) traumatic fracture; Z88.8 Allergy status to other drugs, medicaments and biological substances; Z88.1 Allergy status to other antibiotic agents; Z79.82 Long term (current) use of aspirin; Z79.899 Other long term (current) drug therapy; W45.8XXA Other foreign body or object entering through skin, initial encounter; Y93.89 Activity, other specified; Y92.89 Other specified places as the place of occurrence of the external cause; Y99.8 Other external cause status
CPT/HCPCS: 12001; 73140; 90471; 90715; 99283; J2001

== ENCOUNTER 2020-10-08 09:13 | Emergency (ER) | payer BC ==
[~2020-10-08] VITALS: Ht 180.3 cm; Wt 90.0 kg
[~2020-10-08 09:13] MED LIST changes: -LIDOcaine 1% 30ml preserv. free vial ONE
[2020-10-08 09:20] VITALS: BP 149/84
== END 2020-10-08 10:53 | disposition home or self-care (01) ==
LOC: ER 09:14 → EEVIPCON 09:14 → ER 10:53
DX: S61.217D Laceration without foreign body of left little finger without damage to nail, subsequent encounter (principal); Z48.00 Encounter for change or removal of nonsurgical wound dressing; X58.XXXD Exposure to other specified factors, subsequent encounter
CPT/HCPCS: 99281

== ENCOUNTER 2020-11-18 08:45 | Outpatient (CLI) | payer BC | END 2020-11-18 23:59 | disposition home or self-care (01) | LOC: RAD 08:45 | PROVIDERS: ATTEND Orthopaedic Surgery | DX: S83.411A Sprain of medial collateral ligament of right knee, initial encounter (principal); S83.511A Sprain of anterior cruciate ligament of right knee, initial encounter; S83.241A Other tear of medial meniscus, current injury, right knee, initial encounter; M71.21 Synovial cyst of popliteal space [Baker], right knee; M25.461 Effusion, right knee; M23.41 Loose body in knee, right knee; M65.88 Other synovitis and tenosynovitis, other site; E11.59 Type 2 diabetes mellitus with other circulatory complications; I25.10 Atherosclerotic heart disease of native coronary artery without angina pectoris; F32.9 Major depressive disorder, single episode, unspecified; E78.5 Hyperlipidemia, unspecified; I10 Essential (primary) hypertension; E66.01 Morbid (severe) obesity due to excess calories; X58.XXXA Exposure to other specified factors, initial encounter; X58.XXXD Exposure to other specified factors, subsequent encounter; Y93.9 Activity, unspecified; Y92.89 Other specified places as the place of occurrence of the external cause; Y99.8 Other external cause status; Z72.0 Tobacco use | CPT/HCPCS: 73721 ==

== ENCOUNTER 2021-03-03 08:18 | Day surgery (SDC) | payer BC ==
[2021-02-24 10:35] LABS: BASOPHILS # (AUTO) 0.1 X10'3 (0-0.2); BASOPHILS % (AUTO) 0.8 % (0-1); EOSINOPHILS # (AUTO) 0.4 X10'3 (0-0.9); LYMPHOCYTES # (AUTO) 2.6 X10'3 (1.1-4.8); LYMPHOCYTES % (AUTO) 28.8 % (21-51); MEAN CORPUSCULAR HEMOGLOBIN 31.8 PG (27.0-31.0); MEAN CORPUSCULAR VOLUME 93.4 FL (78-98); MEAN PLATELET VOLUME 7.1 FL (7.4-10.4); MONOCYTES # (AUTO) 0.9 X10'3 (0-0.9); MONOCYTES % (AUTO) 10.2 % (2-12); NEUTROPHILS # (AUTO) 4.9 X10'3 (1.8-7.7); NEUTROPHILS % (AUTO) 55.2 % (42-75); PRE OP HEMATOCRIT 46.1 % (42.0-52.0); PRE OP HEMOGLOBIN 15.7 g/dL (14.0-17.9); PRE OP PLATELET COUNT 266 X10'3 (140-440); RED BLOOD COUNT 4.94 X10'6 (4.70-6.10); RED CELL DISTRIBUTION WIDTH 13.5 % (11.5-14.5)
[2021-02-24 10:49] LABS: ALBUMIN 3.8 G/DL (3.4-5.0); ALBUMIN/GLOBULIN RATIO 1.1 (1.1-1.5); ALKALINE PHOSPHATASE 74 IU/L (46-116); BLOOD UREA NITROGEN 18 MG/DL (7-18); BUN/CREATININE RATIO 13.5 (5.4-32.0); CHLORIDE 105 MMOL/L (99-107); CREATININE 1.33 MG/DL (0.60-1.10); PRE OP ALT 43 U/L (30-65); PRE OP ANION GAP 9 (8-16); PRE OP AST 29 U/L (10-37); PRE OP BILIRUB, TOTAL 0.5 MG/DL (0.0-1.0); PRE OP GLUCOSE 160 MG/DL (70-104); PRE OP POTASSIUM 4.5 MMOL/L (3.4-5.1); PRE OP SODIUM 140 MMOL/L (135-145); TOTAL CARBON DIOXIDE 25.6 MMOL/L (24-32); TOTAL PROTEIN 7.2 G/DL (6.4-8.2); eGFR 55 ML/MIN
[2021-03-03] VITALS (14 sets, daily range): BP systolic 95–120; BP diastolic 67–82
[~2021-03-03] VITALS: Ht 180.3 cm; Wt 118.1 kg
[~2021-03-03 08:18] MED LIST changes: -ASPI-1071 PO; +ASPI-845 PO; +DOCUMENT DATE & TIME OF BETA-BLOCKER PO ONE; +ceFAZolin inj. 3,000 MG in normal saline 100ml IV soln 100 ML IV ONE; +famotidine 20mg tablet PO ONE; +ringers solution, lacted 1,000 ML IV SCH; +vancomycin 1,500 MG in NS 300ml IV soln IV ONE
[2021-03-03] MEDS ORDERED: LIDOcaine 1% (10mg/ml) 2ml vial ONE (09:33)
[2021-03-03] MEDS ORDERED: sevoflurane 250ml liquid IH ONE (10:17)
[2021-03-03] MEDS ORDERED: BUPIVAcaine/PF 2.5 mg/ml (0.25%) 30ml vial ONE (10:17)
[2021-03-03] MEDS ORDERED: triamcinolone acetonide 40mg/ml inj ONE (10:18)
[2021-03-03] MEDS ORDERED: fentaNYL/PF 50MCG/1 ML 2ML syringe ONE (10:23)
[2021-03-03] MEDS ORDERED: proCHLORperazine 10 MG/2 ml inj IV PRN (10:30)
[2021-03-03] MEDS ORDERED: acetaminophen 1,000mg/100ml IV 100 ML IV PRN (10:30)
[2021-03-03] MEDS ORDERED: morphine 4 MG/ML inj SYRINge IV PRN (10:30)
[2021-03-03] MEDS ORDERED: meperidine/PF 25mg/ml syringe IV PRN ×3 (10:30)
[2021-03-03] MEDS ORDERED: ringers solution, lacted 1,000 ML IV SCH (10:30)
[2021-03-03] MEDS ORDERED: ondansetron/PF 4mg/2ml inj IV PRN (10:30)
[2021-03-03] MEDS ORDERED: hydrALAZINE 20mg/ml inj. IV PRN (10:30)
[2021-03-03] MEDS ORDERED: labetalol 20mg/4ml (5mg/ml) syringe IV PRN (10:30)
[2021-03-03] MEDS ORDERED: morphine 2 MG/ML inj. syringe IV PRN (10:30)
[2021-03-03] MEDS ORDERED: ondansetron/PF 4mg/2ml inj ONE (10:32)
[2021-03-03] MEDS ORDERED: LIDOcaine 2% (20mg/ml) 5ml vial ONE (10:32)
[2021-03-03] MEDS ORDERED: dexamethasone sod phosphate 4mg/ml inj. ONE (10:32)
[2021-03-03] MEDS ORDERED: midazolam 1 mg/ML 2ml injection ONE (10:32)
[2021-03-03] MEDS ORDERED: propofol inj 20 ML IV ONE (10:32)
[2021-03-03] MEDS ORDERED: 0.9 % SODIUM CHLORIDE 10 ML VIAL ONE ×2 (10:38→11:22)
[2021-03-03] MEDS ORDERED: ePHEDrine 50MG/ML INJ. ONE (11:22)
--- NOTE | 2021-03-03 11:32 | NUR ---
Received from OR via , accompanied by Anesthesiologist DR COLEMAN and report given by Anesthesiolgist. PT PRESENTS WITH 20G LEFT HAND, RIGHT KNEE DRESSING DRY AND INTACT, VSS. Addendum: 03/03/21 at 1149 by Candace Nowak RN, RN Amended: Links added.
[2021-03-03] MEDS ORDERED: HYDROcodone/acetaminophen 10/325mg tab PO ONE (13:00)
--- NOTE | 2021-03-03 13:21 | NUR ---
DC CRITERIA HAS BEEN MET, PT IV DC'D CANULA INTACT. DC INSTRUCTIONS REVIEWED WITHPT, PT VERBALIZED UNDERSTANDING WITH NO FURTHER QUESTIONS AT THIS TIME. PT WHEELED OUT IN WHEELCHAIR TO PT'S SIGNIFICANT OTHER JESSICA VEHICLE. Addendum: 03/03/21 at 1331 by Candace Nowak RN, RN Amended: Links added.
== END 2021-03-03 13:21 | disposition home or self-care (01) ==
LOC: PAS 08:18
PROVIDERS: ATTEND Orthopaedic Surgery
DX: S83.231A Complex tear of medial meniscus, current injury, right knee, initial encounter (principal); S83.271A Complex tear of lateral meniscus, current injury, right knee, initial encounter; M94.261 Chondromalacia, right knee; M17.0 Bilateral primary osteoarthritis of knee; I25.10 Atherosclerotic heart disease of native coronary artery without angina pectoris; G89.4 Chronic pain syndrome; F32.9 Major depressive disorder, single episode, unspecified; I10 Essential (primary) hypertension; E78.5 Hyperlipidemia, unspecified; E66.01 Morbid (severe) obesity due to excess calories; Z68.37 Body mass index [BMI] 37.0-37.9, adult; E11.59 Type 2 diabetes mellitus with other circulatory complications; I25.2 Old myocardial infarction; F17.210 Nicotine dependence, cigarettes, uncomplicated; Z90.49 Acquired absence of other specified parts of digestive tract; Z98.890 Other specified postprocedural states; Z95.5 Presence of coronary angioplasty implant and graft; Z79.899 Other long term (current) drug therapy; Z79.84 Long term (current) use of oral hypoglycemic drugs; Z79.82 Long term (current) use of aspirin; Z88.5 Allergy status to narcotic agent; Z88.1 Allergy status to other antibiotic agents; Z20.822 Contact with and (suspected) exposure to COVID-19; Z82.3 Family history of stroke; Z82.49 Family history of ischemic heart disease and other diseases of the circulatory system; Z83.3 Family history of diabetes mellitus; X58.XXXA Exposure to other specified factors, initial encounter; Y93.89 Activity, other specified; Y92.89 Other specified places as the place of occurrence of the external cause; Y99.8 Other external cause status
CPT/HCPCS: 29879; 29880; 36415; 80053; 82948; 85025; 93005; J0690; J1100; J2175; J2250; J2405; J2704; J3010; J3301; J3370; J3490; J7040; J7120; U0003; U0005; Z7506; Z7508; Z7512; A4215; A4618; A6250; A6449; A7000

== ENCOUNTER 2021-05-19 08:14 | Outpatient (CLI) | payer BC ==
[~2021-05-19] VITALS: Ht 180.3 cm; Wt 119.7 kg
[2021-05-19] VITALS (10 sets, daily range): BP systolic 108–128; BP diastolic 63–81
[~2021-05-19 08:14] MED LIST changes: -DOCUMENT DATE & TIME OF BETA-BLOCKER PO ONE; -ceFAZolin inj. 3,000 MG in normal saline 100ml IV soln 100 ML IV ONE; -famotidine 20mg tablet PO ONE; -ringers solution, lacted 1,000 ML IV SCH; -vancomycin 1,500 MG in NS 300ml IV soln IV ONE
[2021-05-19] MEDS ORDERED: nitroGLYCERIN 0.4mg SUBLingual tab SL PRN (08:50)
[2021-05-19] MEDS ORDERED: normal saline 500ml IV soln 500 ML IV ONE (08:50)
[2021-05-19] MEDS: regadenoson 0.4mg/5ml syringe IV ONE (09:52)
[2021-05-19] MEDS: aminophylline 500mg/20ml vial IV PRN (09:53)
== END 2021-05-19 23:59 | disposition home or self-care (01) ==
LOC: RAD 08:14
PROVIDERS: ATTEND Internal Medicine Cardiovascular Disease
DX: I25.10 Atherosclerotic heart disease of native coronary artery without angina pectoris (principal); R07.9 Chest pain, unspecified
CPT/HCPCS: 78452; 93017; A9500; J0280; J2785; J7040

== ENCOUNTER 2021-06-02 08:55 | Outpatient (CLI) | payer BC ==
[2021-06-02 09:30] LABS: CLARITY,URINE CLEAR (Clear); COLOR,URINE YELLOW (Yellow); GLUCOSE, URINE NEGATIVE (Neg); KETONES,URINE NEGATIVE (Neg); LEUKOCYTE ESTERASE ,URINE NEGATIVE (Neg); NITRITES, URINE NEGATIVE (Neg); OCCULT BLOOD,URINE NEGATIVE (Neg); PROTEIN,URINE NEGATIVE (Neg); UROBILINOGEN,URINE 0.2 E.U/dL (0.2-1.0)
[2021-06-02 09:34] LABS: BASOPHILS # (AUTO) 0.1 X10'3 (0-0.2); EOSINOPHILS # (AUTO) 0.4 X10'3 (0-0.9); EOSINOPHILS % (AUTO) 4.2 % (0-6); HEMATOCRIT 43.1 % (42.0-52.0); LYMPHOCYTES # (AUTO) 2.9 X10'3 (1.1-4.8); LYMPHOCYTES % (AUTO) 28.3 % (21-51); MEAN CORPUSCULAR HEMOGLOBIN 31.9 PG (27.0-31.0); MEAN CORPUSCULAR HGB CONC 34.8 g/dL (33.0-36.5); MEAN CORPUSCULAR VOLUME 91.9 FL (78-98); MEAN PLATELET VOLUME 6.9 FL (7.4-10.4); MONOCYTES # (AUTO) 1.1 X10'3 (0-0.9); MONOCYTES % (AUTO) 10.3 % (2-12); NEUTROPHILS # (AUTO) 5.8 X10'3 (1.8-7.7); NEUTROPHILS % (AUTO) 56.2 % (42-75); PLATELET COUNT 256 X10'3 (140-440); RED BLOOD COUNT 4.69 X10'6 (4.70-6.10); RED CELL DISTRIBUTION WIDTH 13.6 % (11.5-14.5); WHITE BLOOD COUNT 10.3 X10'3 (4.5-11.0)
[2021-06-02 09:41] LABS: UA COLLECTION TYPE CLN CATCH MIDSTREAM
[2021-06-02 09:50] LABS: ALANINE AMINOTRANSFERASE 33 U/L (12-78); ALBUMIN 3.6 G/DL (3.4-5.0); ALBUMIN/GLOBULIN RATIO 1.2 (1.1-1.5); ALKALINE PHOSPHATASE 81 IU/L (46-116); ANION GAP 11 (8-16); ASPARTATE AMINO TRANSFERASE 22 U/L (10-37); BILIRUBIN,TOTAL 0.4 MG/DL (0.1-1.0); BLOOD UREA NITROGEN 16 MG/DL (7-18); BUN/CREATININE RATIO 11.8 (5.4-32.0); CALCIUM 8.9 MG/DL (8.5-10.1); CHLORIDE 103 MMOL/L (99-107); CHOL/HDL RATIO 3.2 (0.00-4.99); CHOLESTEROL 112 MG/DL (0-200); CREATININE 1.36 MG/DL (0.60-1.10); GLUCOSE 146 MG/DL (70-104); HDL CHOLESTEROL 35 MG/DL (35-60); LDL CHOLESTEROL 63 MG/DL (50-100); POTASSIUM 4.5 MMOL/L (3.5-5.1); SODIUM 141 MMOL/L (135-145); TOTAL CARBON DIOXIDE 26.8 MMOL/L (24-32); TOTAL PROTEIN 6.7 G/DL (6.4-8.2); TRIGLYCERIDES 114 MG/DL (20-135); eGFR 54 ML/MIN
[2021-06-02 10:01] LABS: HEMOGLOBIN A1C 7.1 % (4.5-6.2)
[2021-06-03 12:25] LABS: MICROALB/CRT, RATIO <4 mg/g creat (0-29); THYROXINE (T4) 8.1 ug/dL (4.5-12.0)
== END 2021-06-02 23:59 | disposition home or self-care (01) ==
LOC: LAB 08:55
PROVIDERS: ATTEND Family Medicine
DX: Z00.01 Encounter for general adult medical examination with abnormal findings (principal)
CPT/HCPCS: 36415; 80053; 80061; 81003; 82043; 82570; 83036; 84436; 84443; 85025

== ENCOUNTER 2021-09-20 11:50 | Outpatient (CLI) | payer BC | END 2021-09-20 23:59 | disposition home or self-care (01) | LOC: RAD 11:50 | PROVIDERS: ATTEND Family Medicine | DX: S83.242A Other tear of medial meniscus, current injury, left knee, initial encounter (principal); S83.272A Complex tear of lateral meniscus, current injury, left knee, initial encounter; S83.412A Sprain of medial collateral ligament of left knee, initial encounter; S83.512A Sprain of anterior cruciate ligament of left knee, initial encounter; M17.12 Unilateral primary osteoarthritis, left knee; M76.892 Other specified enthesopathies of left lower limb, excluding foot; M25.462 Effusion, left knee; M23.91 Unspecified internal derangement of right knee; X58.XXXA Exposure to other specified factors, initial encounter; Y93.89 Activity, other specified; Y92.89 Other specified places as the place of occurrence of the external cause; Y99.8 Other external cause status | CPT/HCPCS: 73721 ==

== ENCOUNTER 2021-12-01 08:49 | Outpatient (CLI) | payer BC ==
[2021-12-01] VITALS (10 sets, daily range): BP systolic 101–118; BP diastolic 55–66
[~2021-12-01] VITALS: Ht 180.3 cm; Wt 119.0 kg
[2021-12-01] MEDS ORDERED: metoprolol tartrate 1mg/ml inj IV PRN (13:20)
[2021-12-01] MEDS ORDERED: regadenoson 0.4mg/5ml syringe IV ONE (13:20)
[2021-12-01] MEDS ORDERED: nitroGLYCERIN 0.4mg SUBLingual tab SL PRN (13:20)
[2021-12-01] MEDS ORDERED: normal saline 500ml IV soln 500 ML IV ONE (13:20)
[2021-12-01] MEDS ORDERED: aminophylline 500mg/20ml vial IV PRN (13:20)
[2021-12-01] MEDS ORDERED: atropine 0.1mg/ml 10ml syringe IV PRN (13:20)
== END 2021-12-01 23:59 | disposition home or self-care (01) ==
LOC: RAD 08:49
PROVIDERS: ATTEND Internal Medicine Cardiovascular Disease
DX: R06.02 Shortness of breath (principal); R00.2 Palpitations; Z95.5 Presence of coronary angioplasty implant and graft
CPT/HCPCS: 78452; 93306; A9500; J0280; J2785; J7040

== ENCOUNTER 2022-02-17 09:22 | Day surgery (SDC) | payer BC ==
[2022-02-16 14:23] LABS: BASOPHILS # (AUTO) 0.1 X10'3 (0-0.2); BASOPHILS % (AUTO) 0.8 % (0-1); EOSINOPHILS # (AUTO) 0.4 X10'3 (0-0.9); EOSINOPHILS % (AUTO) 4.3 % (0-6); LYMPHOCYTES % (AUTO) 32.6 % (21-51); MEAN CORPUSCULAR HEMOGLOBIN 31.4 PG (27.0-31.0); MEAN CORPUSCULAR HGB CONC 33.7 g/dL (33.0-36.5); MEAN CORPUSCULAR VOLUME 93.2 FL (78-98); MEAN PLATELET VOLUME 6.8 FL (7.4-10.4); MONOCYTES % (AUTO) 10.8 % (2-12); NEUTROPHILS # (AUTO) 4.7 X10'3 (1.8-7.7); NEUTROPHILS % (AUTO) 51.5 % (42-75); PRE OP HEMATOCRIT 43.8 % (42.0-52.0); PRE OP HEMOGLOBIN 14.8 g/dL (14.0-17.9); PRE OP PLATELET COUNT 236 X10'3 (140-440); RED CELL DISTRIBUTION WIDTH 13.9 % (11.5-14.5)
[2022-02-16 14:37] LABS: ALBUMIN 3.7 G/DL (3.4-5.0); ALBUMIN/GLOBULIN RATIO 1.2 (1.1-1.5); ALKALINE PHOSPHATASE 84 IU/L (46-116); BLOOD UREA NITROGEN 16 MG/DL (7-18); BUN/CREATININE RATIO 12.8 (5.4-32.0); CALCIUM 8.9 MG/DL (8.5-10.1); CHLORIDE 103 MMOL/L (99-107); CREATININE 1.25 MG/DL (0.60-1.10); PRE OP ALT 45 U/L (30-65); PRE OP ANION GAP 10 (8-16); PRE OP AST 28 U/L (10-37); PRE OP BILIRUB, TOTAL 0.4 MG/DL (0.0-1.0); PRE OP POTASSIUM 4.2 MMOL/L (3.4-5.1); PRE OP SODIUM 138 MMOL/L (135-145); TOTAL PROTEIN 6.7 G/DL (6.4-8.2); eGFR 59 ML/MIN
[2022-02-16 14:40] LABS: PRE OP GLUCOSE 205 MG/DL (70-104)
[2022-02-17] VITALS (11 sets, daily range): BP systolic 109–131; BP diastolic 72–87
[~2022-02-17] VITALS: Ht 180.3 cm; Wt 118.8 kg
[~2022-02-17 09:22] MED LIST changes: +DOCUMENT DATE & TIME OF BETA-BLOCKER PO ONE; +HYDR-3972 PO; -HYDR-4383 PO; -ISOS30TA9 PO; +ISOS60TA71 PO; +LIDOcaine 1% (10mg/ml) 2ml vial SQ ONE; +ceFAZolin inj. 2,000 MG in dextrose 5%-water 100 ML IV ONE; +famotidine 20mg tablet PO ONE; +ringers solution, lacted 1,000 ML IV SCH
[2022-02-17] MEDS ORDERED: triamcinolone acetonide 40mg/ml inj ONE (10:18)
[2022-02-17] MEDS ORDERED: ROPIVAcaine 0.5% (5mg/ml) 30ml vial ONE (10:18)
[2022-02-17] MEDS ORDERED: LIDOcaine 1% 30ml preserv. free vial ONE (10:18)
[2022-02-17] MEDS ORDERED: midazolam 1 mg/ML 2ml injection ONE (10:44)
[2022-02-17] MEDS ORDERED: fentaNYL /PF 50mcg/ml 5ml ampule ONE (10:45)
[2022-02-17] MEDS ORDERED: ringers solution, lacted 1,000 ML IV SCH (10:50)
[2022-02-17] MEDS ORDERED: ondansetron/PF 4mg/2ml inj IV PRN (10:50)
[2022-02-17] MEDS ORDERED: proCHLORperazine 10 MG/2 ml inj IV PRN (10:50)
[2022-02-17] MEDS ORDERED: meperidine/PF 25mg/ml syringe IV PRN ×3 (10:50)
[2022-02-17] MEDS ORDERED: morphine 4 MG/ML inj SYRINge IV PRN (10:50)
[2022-02-17] MEDS ORDERED: morphine 2 MG/ML inj. syringe IV PRN (10:50)
[2022-02-17] MEDS ORDERED: LIDOcaine 2% (20mg/ml) 5ml vial ONE (10:54)
[2022-02-17] MEDS ORDERED: sevoflurane 250ml liquid IH ONE (10:54)
[2022-02-17] MEDS ORDERED: propofol inj 20 ML IV ONE (11:38)
--- NOTE | 2022-02-17 11:56 | NUR ---
Received from OR via [facility] , accompanied by Anesthesiologist DR HILL and report given by Anesthesiolgist. PT PRESENTS WITH 20G LEFT WRIST, RIGHT KNEE DRESSING WITH JUSTO WRAP CDI. VSS.
--- NOTE | 2022-02-17 12:10 | NUR ---
ICE PACK PLACED ON PT RIGHT KNEE. Addendum: 02/17/22 at 1252 by Candace Nowak RN RN Amended: Links added.
--- NOTE | 2022-02-17 13:46 | NUR ---
ALL DISCHARGE CRITERIA HAS BEEN MET. VSS, PAIN AT A TOLERABLE LEVEL, VOIDING AND ABLE TO SAFELY AMBULATE AND TRANSFER SELF. IV TAKEN OUT WITHOUT ANY COMPLICATIONS. ALL DISCHARGE INSTRUCTIONS COVERED WITH PATIENT AND ALL QUESTIONS ANSWERED. PATIENT TAKEN OUT VIA WHEELCHAIR WITH ALL BELONGINGS TO PERSONAL VEHICLE WHERE FAMILY/FRIEND DROVE PATIENT HOME. Addendum: 02/17/22 at 1351 by Candace Nowak RN, RN Amended: Links added.
== END 2022-02-17 13:46 | disposition home or self-care (01) ==
LOC: PAS 09:22
PROVIDERS: ATTEND Orthopaedic Surgery
DX: S83.241A Other tear of medial meniscus, current injury, right knee, initial encounter (principal); S83.281A Other tear of lateral meniscus, current injury, right knee, initial encounter; M94.261 Chondromalacia, right knee; I25.10 Atherosclerotic heart disease of native coronary artery without angina pectoris; E11.9 Type 2 diabetes mellitus without complications; E78.5 Hyperlipidemia, unspecified; X58.XXXA Exposure to other specified factors, initial encounter; Y93.89 Activity, other specified; Y92.89 Other specified places as the place of occurrence of the external cause; Y99.8 Other external cause status; Z79.899 Other long term (current) drug therapy; Z98.890 Other specified postprocedural states; Z82.49 Family history of ischemic heart disease and other diseases of the circulatory system; Z86.73 Personal history of transient ischemic attack (TIA), and cerebral infarction without residual deficits; Z90.49 Acquired absence of other specified parts of digestive tract
CPT/HCPCS: 29880; 36415; 80053; 82948; 85025; J0690; J2250; J2704; J2795; J3010; J3301; J3490; J7060; J7120; Z7506; Z7512; A4215; A4618; A6449; A7000

== ENCOUNTER 2022-08-22 08:06 | Outpatient (CLI) | payer BC ==
[~2022-08-22 08:06] MED LIST changes: -DOCUMENT DATE & TIME OF BETA-BLOCKER PO ONE; -LIDOcaine 1% (10mg/ml) 2ml vial SQ ONE; -ceFAZolin inj. 2,000 MG in dextrose 5%-water 100 ML IV ONE; -famotidine 20mg tablet PO ONE; -ringers solution, lacted 1,000 ML IV SCH
[2022-08-22 09:07] LABS: BASOPHILS # (AUTO) 0.1 X10'3 (0-0.2); BASOPHILS % (AUTO) 0.6 % (0-1); EOSINOPHILS # (AUTO) 0.2 X10'3 (0-0.9); EOSINOPHILS % (AUTO) 1.9 % (0-6); HEMATOCRIT 49.9 % (42.0-52.0); HEMOGLOBIN 16.7 g/dl (14.0-17.9); LYMPHOCYTES # (AUTO) 2.5 X10'3 (1.1-4.8); LYMPHOCYTES % (AUTO) 27.2 % (21-51); MEAN CORPUSCULAR HEMOGLOBIN 31.4 PG (27.0-31.0); MEAN CORPUSCULAR HGB CONC 33.5 g/dL (33.0-36.5); MEAN CORPUSCULAR VOLUME 93.8 FL (78-98); MEAN PLATELET VOLUME 7.1 FL (7.4-10.4); MONOCYTES # (AUTO) 0.9 X10'3 (0-0.9); MONOCYTES % (AUTO) 9.6 % (2-12); NEUTROPHILS # (AUTO) 5.7 X10'3 (1.8-7.7); NEUTROPHILS % (AUTO) 60.7 % (42-75); PLATELET COUNT 241 X10'3 (140-440); RED BLOOD COUNT 5.32 X10'6 (4.70-6.10); RED CELL DISTRIBUTION WIDTH 13.7 % (11.5-14.5); WHITE BLOOD COUNT 9.4 X10'3 (4.5-11.0)
[2022-08-22 09:14] LABS: CLARITY,URINE CLEAR (Clear); COLOR,URINE YELLOW (Yellow); GLUCOSE, URINE >=1000 mg/dl (Neg); KETONES,URINE NEGATIVE (Neg); LEUKOCYTE ESTERASE ,URINE NEGATIVE (Neg); NITRITES, URINE NEGATIVE (Neg); OCCULT BLOOD,URINE NEGATIVE (Neg); PH,URINE 5.5 (4.8-8.0); PROTEIN,URINE NEGATIVE (Neg); UA COLLECTION TYPE CLN CATCH MIDSTREAM; UROBILINOGEN,URINE 0.2 E.U/dL (0.2-1.0)
[2022-08-22 09:15] LABS: ALANINE AMINOTRANSFERASE 42 U/L (12-78); ALBUMIN 4.1 G/DL (3.4-5.0); ALBUMIN/GLOBULIN RATIO 1.3 (1.1-1.5); ALKALINE PHOSPHATASE 71 IU/L (46-116); ANION GAP 8 (8-16); ASPARTATE AMINO TRANSFERASE 27 U/L (10-37); BILIRUBIN,TOTAL 0.4 MG/DL (0.1-1.0); BLOOD UREA NITROGEN 25 MG/DL (7-18); BUN/CREATININE RATIO 17.4 (10.0-20.0); CALCIUM 9.3 MG/DL (8.5-10.1); CHLORIDE 102 MMOL/L (99-107); CHOL/HDL RATIO 3.2 (0.00-4.99); CHOLESTEROL 126 MG/DL (0-200); CREATININE 1.44 MG/DL (0.60-1.10); GLUCOSE 145 MG/DL (70-104); HDL CHOLESTEROL 39 MG/DL (35-60); LDL CHOLESTEROL 68 MG/DL (50-100); POTASSIUM 4.4 MMOL/L (3.5-5.1); SODIUM 135 MMOL/L (135-145); TOTAL CARBON DIOXIDE 24.9 MMOL/L (24-32); TOTAL PROTEIN 7.3 G/DL (6.4-8.2); TRIGLYCERIDES 120 MG/DL (20-135); eGFR 50 ML/MIN
[2022-08-22 09:34] LABS: HEMOGLOBIN A1C 6.9 % (4.5-6.2)
[2022-08-22 10:05] LABS: SQUAMOUS EPITHELIAL CELL,UR FEW /LPF (FEW)
[2022-08-22 10:06] LABS: BACTERIA,URINE FEW /HPF (Neg); RBC,URINE 0-2 /HPF (0-2); TRANSITIONAL EPI CELLS,URINE FEW /HPF; WBC,URINE 0-4 /HPF (0-4)
[2022-08-23 17:34] LABS: MICROALB/CRT, RATIO <7 mg/g creat (0-29)
== END 2022-08-22 23:59 | disposition home or self-care (01) ==
LOC: LAB 08:06
PROVIDERS: ATTEND Family Medicine
DX: E11.9 Type 2 diabetes mellitus without complications (principal); E78.9 Disorder of lipoprotein metabolism, unspecified; I10 Essential (primary) hypertension
CPT/HCPCS: 36415; 80053; 80061; 81001; 82043; 82570; 83036; 84439; 84443; 85025

== ENCOUNTER 2023-04-23 09:10 | Day surgery (SDC) | payer BC ==
[2023-04-20 15:20] LABS: BASOPHILS # (AUTO) 0.1 X10'3 (0-0.2); BASOPHILS % (AUTO) 0.7 % (0-1); EOSINOPHILS # (AUTO) 0.4 X10'3 (0-0.9); EOSINOPHILS % (AUTO) 4.1 % (0-6); LYMPHOCYTES # (AUTO) 2.9 X10'3 (1.1-4.8); LYMPHOCYTES % (AUTO) 31.7 % (21-51); MEAN CORPUSCULAR HEMOGLOBIN 31.7 PG (27.0-31.0); MEAN CORPUSCULAR HGB CONC 33.6 g/dL (33.0-36.5); MEAN CORPUSCULAR VOLUME 94.2 FL (78-98); MEAN PLATELET VOLUME 6.9 FL (7.4-10.4); MONOCYTES # (AUTO) 0.9 X10'3 (0-0.9); NEUTROPHILS # (AUTO) 4.9 X10'3 (1.8-7.7); NEUTROPHILS % (AUTO) 53.5 % (42-75); PRE OP HEMATOCRIT 50.1 % (42.0-52.0); PRE OP HEMOGLOBIN 16.9 g/dL (14.0-17.9); PRE OP PLATELET COUNT 250 X10'3 (140-440); PRE OP WHITE BLOOD COUNT 9.2 10'3 (4.8-10.8); RED BLOOD COUNT 5.32 X10'6 (4.70-6.10); RED CELL DISTRIBUTION WIDTH 14.1 % (11.5-14.5)
[2023-04-20 15:38] LABS: ALBUMIN 3.8 G/DL (3.4-5.0); ALBUMIN/GLOBULIN RATIO 1.2 (1.1-1.5); ALKALINE PHOSPHATASE 79 IU/L (46-116); BLOOD UREA NITROGEN 23 MG/DL (7-18); BUN/CREATININE RATIO 16.5 (10.0-20.0); CALCIUM 8.2 MG/DL (8.5-10.1); CHLORIDE 108 MMOL/L (99-107); CREATININE 1.39 MG/DL (0.60-1.10); PRE OP ALT 41 U/L (30-65); PRE OP ANION GAP 10 (8-16); PRE OP AST 30 U/L (10-37); PRE OP BILIRUB, TOTAL 0.5 MG/DL (0.0-1.0); PRE OP GLUCOSE 128 MG/DL (70-104); PRE OP POTASSIUM 4.1 MMOL/L (3.4-5.1); PRE OP SODIUM 143 MMOL/L (135-145); TOTAL CARBON DIOXIDE 24.7 MMOL/L (24-32); TOTAL PROTEIN 7.1 G/DL (6.4-8.2); eGFR 52 ML/MIN
[2023-04-23] VITALS (10 sets, daily range): BP systolic 104–131; BP diastolic 68–85; PULSE 65–78; RESP 12–16; TEMP 96.8; O2SAT 95–98
[~2023-04-23] VITALS: Ht 180.3 cm; Wt 112.8 kg
[2023-04-23] MEDS: DOCUMENT DATE & TIME OF BETA-BLOCKER PO ONE (05:30)
[~2023-04-23 09:10] MED LIST changes: +EMPA10TA PO; -METF-438 PO; +TIRZ12.5 SQ
[2023-04-23] MEDS ORDERED: LIDOcaine 1% 30ml preserv. free vial ONE (10:34)
[2023-04-23] MEDS: famotidine 20mg tablet PO ONE (11:07)
[2023-04-23] MEDS: ringers solution, lacted 1,000 ML IV SCH (11:07)
[2023-04-23] MEDS ORDERED: MIDAZolam 1 MG/ML 5ML VIAL ONE (12:22)
[2023-04-23] MEDS ORDERED: fentaNYL/PF 50MCG/1 ML 2ML syringe ONE (12:22)
[2023-04-23] MEDS ORDERED: ketorolac trometh. 30mg/ml inj. ONE (12:26)
[2023-04-23] MEDS: BUPIVAcaine/PF 2.5mg/ml (0.25%) 10ml vial IJ ONE (13:01)
[2023-04-23] MEDS ORDERED: ESCI10TA PO (13:47)
[2023-04-23] MEDS: cefazolin 2gm/D5W 100mL 100 ML IV ONE (14:00)
== END 2023-04-23 14:36 | disposition home or self-care (01) ==
LOC: PAS 09:10
PROVIDERS: ATTEND Orthopaedic Surgery Hand Surgery
DX: S63.591A Other specified sprain of right wrist, initial encounter (principal); I10 Essential (primary) hypertension; E11.9 Type 2 diabetes mellitus without complications; I25.119 Atherosclerotic heart disease of native coronary artery with unspecified angina pectoris; E66.01 Morbid (severe) obesity due to excess calories; E78.5 Hyperlipidemia, unspecified; F32.A Depression, unspecified; I25.2 Old myocardial infarction; M19.90 Unspecified osteoarthritis, unspecified site; Z87.891 Personal history of nicotine dependence; Z79.82 Long term (current) use of aspirin; Z79.891 Long term (current) use of opiate analgesic; Z79.899 Other long term (current) drug therapy; Z90.49 Acquired absence of other specified parts of digestive tract; Z95.5 Presence of coronary angioplasty implant and graft; Z98.890 Other specified postprocedural states; Z68.34 Body mass index [BMI] 34.0-34.9, adult; Z88.1 Allergy status to other antibiotic agents; Z88.5 Allergy status to narcotic agent; Z83.3 Family history of diabetes mellitus; Z82.3 Family history of stroke; X58.XXXA Exposure to other specified factors, initial encounter; Y93.89 Activity, other specified; Y92.89 Other specified places as the place of occurrence of the external cause; Y99.8 Other external cause status
CPT/HCPCS: 29846; 36415; 80053; 82948; 85025; 93005; J0690; J1885; J2250; J3010; J3490; J7030; J7120; Z7506; Z7512; A4215; A4618; A7000

== ENCOUNTER 2023-09-14 09:07 | Outpatient (CLI) | payer BC ==
[~2023-09-14] VITALS: Ht 182.9 cm; Wt 113.0 kg
[2023-09-14] VITALS (9 sets, daily range): BP systolic 84–107; BP diastolic 59–73; PULSE 81–99; RESP 18; O2SAT 98–100
[~2023-09-14 09:07] MED LIST changes: +ESCI10TA PO; +VITA-290 PO; -VITA1TAB20 PO
[2023-09-14] MEDS ORDERED: aminophylline inj. 0 ML IV ONE (10:37)
[2023-09-14] MEDS: regadenoson 0.4mg/5ml syringe IV ONE (10:37)
== END 2023-09-14 23:59 | disposition home or self-care (01) ==
LOC: RAD 09:07
PROVIDERS: ATTEND Internal Medicine Cardiovascular Disease
DX: I25.10 Atherosclerotic heart disease of native coronary artery without angina pectoris (principal); R06.02 Shortness of breath; R53.83 Other fatigue
CPT/HCPCS: 78452; 93017; A9500; J2785; J0280

== ENCOUNTER → 2023-09-18 | Outpatient (CLI) | payer BC ==
[2023-09-18 08:29] LABS: BILIRUBIN,URINE NEGATIVE (Neg); CLARITY,URINE CLEAR (Clear); COLOR,URINE YELLOW (Yellow); GLUCOSE, URINE >=1000 mg/dl (Neg); KETONES,URINE NEGATIVE (Neg); LEUKOCYTE ESTERASE ,URINE NEGATIVE (Neg); NITRITES, URINE NEGATIVE (Neg); OCCULT BLOOD,URINE NEGATIVE (Neg); PH,URINE 5.5 (4.8-8.0); PROTEIN,URINE NEGATIVE (Neg); UA COLLECTION TYPE CLN CATCH MIDSTREAM; UROBILINOGEN,URINE 0.2 E.U/dL (0.2-1.0)
[2023-09-18 08:36] LABS: BACTERIA,URINE NONE SEEN /HPF (Neg); BASOPHILS # (AUTO) 0.1 X10'3 (0-0.2); BASOPHILS % (AUTO) 0.8 % (0-1); EOSINOPHILS # (AUTO) 0.3 X10'3 (0-0.9); EOSINOPHILS % (AUTO) 2.8 % (0-6); HEMATOCRIT 52.5 % (42.0-52.0); HEMOGLOBIN 17.9 g/dl (14.0-17.9); LYMPHOCYTES # (AUTO) 2.6 X10'3 (1.1-4.8); MEAN CORPUSCULAR HEMOGLOBIN 32.5 PG (27.0-31.0); MEAN CORPUSCULAR VOLUME 95.4 FL (78-98); MEAN PLATELET VOLUME 7.1 FL (7.4-10.4); MONOCYTES # (AUTO) 1.1 X10'3 (0-0.9); MONOCYTES % (AUTO) 10.7 % (2-12); NEUTROPHILS % (AUTO) 59.7 % (42-75); PLATELET COUNT 270 X10'3 (140-440); RBC,URINE NONE SEEN /HPF (0-2); RED BLOOD COUNT 5.51 X10'6 (4.70-6.10); RED CELL DISTRIBUTION WIDTH 13.7 % (11.5-14.5); SQUAMOUS EPITHELIAL CELL,UR NONE SEEN /LPF (FEW); WBC,URINE NONE SEEN /HPF (0-4); WHITE BLOOD COUNT 10.1 X10'3 (4.5-11.0)
[2023-09-18 08:47] LABS: ALANINE AMINOTRANSFERASE 42 U/L (12-78); ALBUMIN/GLOBULIN RATIO 1.1 (1.1-1.5); ALKALINE PHOSPHATASE 96 IU/L (46-116); ANION GAP 12 (8-16); ASPARTATE AMINO TRANSFERASE 26 U/L (10-37); BILIRUBIN,TOTAL 0.5 MG/DL (0.1-1.0); BLOOD UREA NITROGEN 26 MG/DL (7-18); BUN/CREATININE RATIO 17.8 (10.0-20.0); CALCIUM 9.2 MG/DL (8.5-10.1); CHLORIDE 104 MMOL/L (99-107); CHOL/HDL RATIO 3.4 (0.00-4.99); CHOLESTEROL 133 MG/DL (0-200); CREATININE 1.46 MG/DL (0.60-1.10); GLUCOSE 120 MG/DL (70-104); HDL CHOLESTEROL 39 MG/DL (35-60); LDL CHOLESTEROL 74 MG/DL (50-100); POTASSIUM 4.5 MMOL/L (3.5-5.1); SODIUM 137 MMOL/L (135-145); THYROID STIMULATING HORMONE 1.04 ulU/ml (0.34-4.50); TOTAL CARBON DIOXIDE 21.2 MMOL/L (24-32); TOTAL PROTEIN 7.7 G/DL (6.4-8.2); TRIGLYCERIDES 121 MG/DL (20-135); eGFR 49 ML/MIN
[2023-09-19 13:32] LABS: CREATININE, URINE 60.7 mg/dL (Not Estab.); MICROALB/CRT, RATIO <5 mg/g creat (0-29); MICROALBUMIN,U,RANDOM <3.0 ug/mL (Not Estab.)
== END | disposition home or self-care (01) ==
LOC: LAB 07:47
PROVIDERS: ATTEND Family Medicine
DX: Z00.01 Encounter for general adult medical examination with abnormal findings (principal); E11.9 Type 2 diabetes mellitus without complications
CPT/HCPCS: 36415; 80053; 80061; 81001; 82043; 82570; 83036; 84436; 84443; 85025

== ENCOUNTER 2023-10-01 06:10 | Day surgery (SDC) | payer BC ==
[2023-09-28 09:56] LABS: BASOPHILS # (AUTO) 0.1 X10'3 (0-0.2); BASOPHILS % (AUTO) 0.5 % (0-1); EOSINOPHILS # (AUTO) 0.2 X10'3 (0-0.9); EOSINOPHILS % (AUTO) 2.3 % (0-6); HEMATOCRIT 51.3 % (42.0-52.0); HEMOGLOBIN 17.3 g/dl (14.0-17.9); LYMPHOCYTES # (AUTO) 2.8 X10'3 (1.1-4.8); LYMPHOCYTES % (AUTO) 26.3 % (21-51); MEAN CORPUSCULAR HEMOGLOBIN 32.4 PG (27.0-31.0); MEAN CORPUSCULAR HGB CONC 33.8 g/dL (33.0-36.5); MEAN CORPUSCULAR VOLUME 95.8 FL (78-98); MEAN PLATELET VOLUME 7.1 FL (7.4-10.4); MONOCYTES # (AUTO) 1.1 X10'3 (0-0.9); MONOCYTES % (AUTO) 10.8 % (2-12); NEUTROPHILS # (AUTO) 6.3 X10'3 (1.8-7.7); NEUTROPHILS % (AUTO) 60.1 % (42-75); PLATELET COUNT 237 X10'3 (140-440); RED BLOOD COUNT 5.36 X10'6 (4.70-6.10); RED CELL DISTRIBUTION WIDTH 13.5 % (11.5-14.5); WHITE BLOOD COUNT 10.5 X10'3 (4.5-11.0)
[2023-09-28 10:03] LABS: APTT 28 SECONDS (22-32); PROTHROMBIN TIME 10.8 SECONDS (9.0-12.0)
[2023-09-28 10:09] LABS: ALBUMIN 3.8 G/DL (3.4-5.0); ANION GAP 8 (8-16); BLOOD UREA NITROGEN 24 MG/DL (7-18); BUN/CREATININE RATIO 15.6 (10.0-20.0); CALCIUM 8.9 MG/DL (8.5-10.1); CHLORIDE 103 MMOL/L (99-107); CREATININE 1.54 MG/DL (0.60-1.10); GLUCOSE 114 MG/DL (70-104); POTASSIUM 4.5 MMOL/L (3.5-5.1); SODIUM 138 MMOL/L (135-145); TOTAL CARBON DIOXIDE 26.8 MMOL/L (24-32); eGFR 46 ML/MIN
[~2023-10-01] VITALS: Ht 180.3 cm; Wt 111.1 kg
[2023-10-01] VITALS (11 sets, daily range): BP systolic 96–137; BP diastolic 58–80; PULSE 73–89; RESP 14–16; TEMP 98.3; O2SAT 96–98
[2023-10-01] MEDS ORDERED: normal saline 1,000 ML IV SCH (06:25)
[2023-10-01] MEDS ORDERED: WATER IV SCH (07:10)
[2023-10-01] MEDS ORDERED: SODIUM BICARBONATE IV SCH (07:10)
[2023-10-01] MEDS ORDERED: DEXTROSE 5% IV SCH (07:10)
[2023-10-01] MEDS: LORazepam 0.5 MG tablet PO PRN (07:20)
[2023-10-01] MEDS: diphenhydrAMINE 25mg capsule PO PRN (07:20)
[2023-10-01] MEDS ORDERED: LIDOcaine 1% 30ml preserv. free vial ONE (07:21)
[2023-10-01] MEDS ORDERED: verapamil 2.5 mg/ml inj IV ONE (07:21)
[2023-10-01] MEDS ORDERED: fentaNYL/PF 50MCG/1 ML 2ML syringe ONE (07:21)
[2023-10-01] MEDS ORDERED: midazolam 1 mg/ML 2ml injection ONE (07:21)
[2023-10-01] MEDS ORDERED: iohexol 350 MG/ML 50ML vial IV ONE (07:22)
[2023-10-01] MEDS ORDERED: nitroGLYCERIN 500mcg/5mL D5W 5 ML IV ONE (07:22)
[2023-10-01] MEDS ORDERED: iohexol 350MG/ML 100ml bottle IV ONE (07:22)
[2023-10-01] MEDS ORDERED: heparin 1,000unit/ml 10ml vial 10 ML ONE (07:22)
[2023-10-01] MEDS ORDERED: LIDOcaine 1% (10mg/ml) 2ml vial ONE (07:23)
[2023-10-01] MEDS: sodium bicarbonate 1meq/ml inj 150 ML in dextrose 5%-water 1,000 ML IV SCH (07:46)
[2023-10-01] MEDS ORDERED: HYDROcodone/acetaminophen 5mg/325mg tablet PO PRN (09:25)
[2023-10-01] MEDS ORDERED: HYDROcodone/acetaminophen 10/325mg tab PO PRN (09:25)
[2023-10-01] MEDS ORDERED: normal saline 1000ml 1,000 ML IV SCH (09:25)
== END 2023-10-01 14:00 | disposition home or self-care (01) ==
LOC: SSTAY O 06:10
PROVIDERS: ATTEND Internal Medicine Cardiovascular Disease
DX: I25.10 Atherosclerotic heart disease of native coronary artery without angina pectoris (principal); I45.2 Bifascicular block; I10 Essential (primary) hypertension; E11.9 Type 2 diabetes mellitus without complications; E78.5 Hyperlipidemia, unspecified; E66.3 Overweight; I25.2 Old myocardial infarction; Z79.02 Long term (current) use of antithrombotics/antiplatelets; Z79.82 Long term (current) use of aspirin; Z79.899 Other long term (current) drug therapy; Z90.49 Acquired absence of other specified parts of digestive tract; Z95.5 Presence of coronary angioplasty implant and graft; Z98.890 Other specified postprocedural states; Z68.34 Body mass index [BMI] 34.0-34.9, adult; Z88.1 Allergy status to other antibiotic agents; Z88.5 Allergy status to narcotic agent
CPT/HCPCS: 36415; 80048; 82948; 85025; 85610; 85730; 93005; 93458; 99152; J1644; J2250; J3010; J3490; J7030; J7070; Q0163; Q9967; C1760; C1769

== ENCOUNTER 2023-10-09 12:43 | Outpatient (CLI) | payer BC ==
[~2023-10-09 12:43] MED LIST changes: -CHOL200012 PO; -ESCI10TA PO; -MULT-1085 PO; -VITA-290 PO
== END 2023-10-09 23:59 | disposition home or self-care (01) ==
LOC: CARD DIAG 12:43
PROVIDERS: ATTEND Internal Medicine Cardiovascular Disease
DX: I08.8 Other rheumatic multiple valve diseases (principal); I25.10 Atherosclerotic heart disease of native coronary artery without angina pectoris; R06.02 Shortness of breath; R53.83 Other fatigue
CPT/HCPCS: 93306

== ENCOUNTER 2024-03-12 10:02 | Observation (INO) | payer BC ==
[~2024-03-12] VITALS: Ht 180.3 cm; Wt 110.9 kg
[2024-03-12 10:28] LABS: BASOPHILS # (AUTO) 0.1 X10'3 (0-0.2); BASOPHILS % (AUTO) 0.9 % (0-1); EOSINOPHILS # (AUTO) 0.3 X10'3 (0-0.9); EOSINOPHILS % (AUTO) 2.9 % (0-6); HEMATOCRIT 48.5 % (42.0-52.0); HEMOGLOBIN 16.8 g/dl (14.0-17.9); LYMPHOCYTES # (AUTO) 2.8 X10'3 (1.1-4.8); LYMPHOCYTES % (AUTO) 28.7 % (21-51); MEAN CORPUSCULAR HEMOGLOBIN 32.8 PG (27.0-31.0); MEAN CORPUSCULAR HGB CONC 34.6 g/dL (33.0-36.5); MEAN CORPUSCULAR VOLUME 94.8 FL (78-98); MEAN PLATELET VOLUME 6.6 FL (7.4-10.4); MONOCYTES # (AUTO) 0.8 X10'3 (0-0.9); MONOCYTES % (AUTO) 7.9 % (2-12); NEUTROPHILS # (AUTO) 5.8 X10'3 (1.8-7.7); NEUTROPHILS % (AUTO) 59.6 % (42-75); PLATELET COUNT 218 X10'3 (140-440); RED BLOOD COUNT 5.12 X10'6 (4.70-6.10); RED CELL DISTRIBUTION WIDTH 14.1 % (11.5-14.5); WHITE BLOOD COUNT 9.7 X10'3 (4.5-11.0)
[2024-03-12 10:57] LABS: ALANINE AMINOTRANSFERASE 39 U/L (12-78); ALBUMIN 3.8 G/DL (3.4-5.0); ALBUMIN/GLOBULIN RATIO 1.2 (1.1-1.5); ALKALINE PHOSPHATASE 90 IU/L (46-116); ANION GAP 7 (8-16); ASPARTATE AMINO TRANSFERASE 23 U/L (10-37); BILIRUBIN,TOTAL 0.5 MG/DL (0.1-1.0); BLOOD UREA NITROGEN 23 MG/DL (7-18); BUN/CREATININE RATIO 15.2 (10.0-20.0); CHLORIDE 105 MMOL/L (99-107); CREATININE 1.51 MG/DL (0.60-1.10); GLUCOSE 163 MG/DL (70-104); POTASSIUM 4.6 MMOL/L (3.5-5.1); SODIUM 138 MMOL/L (135-145); TOTAL CARBON DIOXIDE 26.1 MMOL/L (24-32); TOTAL PROTEIN 7.1 G/DL (6.4-8.2); eCRCL 55 ML/MIN; eGFR 47 ML/MIN
[2024-03-12 11:00] LABS: PRO BRAIN NATRIURETIC PEPTIDE 30 PG/ML (0-125)
[2024-03-12] MEDS ORDERED: acetaminophen 325mg tablet PO PRN (13:45)
[2024-03-12] MEDS ORDERED: morphine 2 MG/ML inj. syringe IV PRN (13:45)
[2024-03-12] MEDS ORDERED: ondansetron/PF 4mg/2ml inj IV PRN (13:45)
[2024-03-12] MEDS ORDERED: aminophylline 250mg/10ml inj. IV PRN (14:45)
[2024-03-12] MEDS ORDERED: nitroGLYCERIN 0.4mg SUBLingual tab SL PRN ×2 (14:45→14:55)
[2024-03-12] MEDS: PERFLUTREN PROTEIN-A MICROSPHR (Optison) 0.22 MG/ML 3ML VIAL IV ONE (14:45)
[2024-03-12] MEDS ORDERED: metoprolol tartrate 1mg/ml inj IV PRN (14:45)
[2024-03-12] MEDS ORDERED: DEXTROSE 15 GM of carb/4 tabs (each vial/BOTTLE has 4 tablets) PO PRN ×2 (14:55)
[2024-03-12] MEDS ORDERED: glucagon, human recombinant 1mg kit SUBCUT PRN (14:55)
[2024-03-12] MEDS ORDERED: dextrose 50%-water 50ml dispensing syringe IV PRN ×2 (14:55)
[2024-03-12 15:00] VITALS: BP 113/67; PULSE 83; RESP 20; TEMP 98.7; O2SAT 96
[2024-03-12] MEDS ORDERED: VITA1CAP PO (15:24)
[2024-03-12] MEDS ORDERED: MULT-1249 PO (15:24)
[2024-03-12 15:32] LABS: CHOL/HDL RATIO 3.2 (0.00-4.99); CHOLESTEROL 136 MG/DL (0-200); HDL CHOLESTEROL 43 MG/DL (35-60); LDL CHOLESTEROL 74 MG/DL (50-100); TRIGLYCERIDES 123 MG/DL (20-135)
[2024-03-12 15:37] LABS: HEMOGLOBIN A1C 5.6 % (4.5-6.2)
[2024-03-12] MEDS: INSULIN LISPRO 100 UNIT/ML INSULN.PEN MULTI-DOSE SQ SCH (17:00)
[2024-03-12] MEDS: EMPAGLIFLOZIN 25 MG TABLET PO SCH (18:00)
[2024-03-12 20:00] VITALS: RESP 15; O2SAT 99
[2024-03-12] MEDS: metoprolol tartrate 25mg tablet PO SCH (20:00)
[2024-03-12] MEDS: insulin glargine (Lantus) pen - multi-dose SQ SCH (20:59)
[2024-03-12] MEDS: lisinopril 5mg tablet PO SCH (21:07)
[2024-03-12] MEDS: ranolazine 500mg SR tablet (Q12H) PO SCH (21:08)
[2024-03-12] MEDS: R PO SCH (21:08)
[2024-03-12] MEDS: heparin, porcine 5000 units/ml vial SQ SCH (21:08)
[2024-03-12 22:00] VITALS: BP 95/64; PULSE 77; RESP 15; TEMP 97.1; O2SAT 100
[2024-03-13] VITALS (22 sets, daily range): BP systolic 81–102; BP diastolic 55–77; PULSE 82–109; RESP 12–22; TEMP 97.1–98.2; O2SAT 95–99
[2024-03-13 06:32] LABS: ALANINE AMINOTRANSFERASE 32 U/L (12-78); ALBUMIN 3.4 G/DL (3.4-5.0); ALBUMIN/GLOBULIN RATIO 1.1 (1.1-1.5); ALKALINE PHOSPHATASE 88 IU/L (46-116); ANION GAP 9 (8-16); ASPARTATE AMINO TRANSFERASE 26 U/L (10-37); BILIRUBIN,TOTAL 0.6 MG/DL (0.1-1.0); BLOOD UREA NITROGEN 22 MG/DL (7-18); BUN/CREATININE RATIO 16.8 (10.0-20.0); CALCIUM 8.8 MG/DL (8.5-10.1); CHLORIDE 107 MMOL/L (99-107); CREATININE 1.31 MG/DL (0.60-1.10); GLUCOSE 110 MG/DL (70-104); POTASSIUM 4.3 MMOL/L (3.5-5.1); SODIUM 140 MMOL/L (135-145); TOTAL CARBON DIOXIDE 24.5 MMOL/L (24-32); TOTAL PROTEIN 6.6 G/DL (6.4-8.2); eCRCL 64 ML/MIN; eGFR 56 ML/MIN
[2024-03-13 07:10] LABS: BASOPHILS # (AUTO) 0.1 X10'3 (0-0.2); BASOPHILS % (AUTO) 0.6 % (0-1); EOSINOPHILS # (AUTO) 0.3 X10'3 (0-0.9); EOSINOPHILS % (AUTO) 3.1 % (0-6); HEMATOCRIT 48.9 % (42.0-52.0); HEMOGLOBIN 16.6 g/dl (14.0-17.9); LYMPHOCYTES # (AUTO) 2.3 X10'3 (1.1-4.8); LYMPHOCYTES % (AUTO) 23.2 % (21-51); MEAN CORPUSCULAR HEMOGLOBIN 32.5 PG (27.0-31.0); MEAN CORPUSCULAR HGB CONC 33.9 g/dL (33.0-36.5); MEAN CORPUSCULAR VOLUME 95.8 FL (78-98); MONOCYTES # (AUTO) 0.9 X10'3 (0-0.9); MONOCYTES % (AUTO) 8.7 % (2-12); NEUTROPHILS # (AUTO) 6.3 X10'3 (1.8-7.7); NEUTROPHILS % (AUTO) 64.4 % (42-75); PLATELET COUNT 225 X10'3 (140-440); RED CELL DISTRIBUTION WIDTH 13.9 % (11.5-14.5); WHITE BLOOD COUNT 9.8 X10'3 (4.5-11.0)
[2024-03-13] MEDS: clopidogrel 75mg tablet PO SCH (08:43)
[2024-03-13] MEDS: isosorbide mononitrate 30mg tab.SR.24H PO SCH (08:43)
[2024-03-13] MEDS: aspirin 325mg tablet, delayed-release (Ecotrin) PO SCH (08:43)
[2024-03-13] MEDS: regadenoson 0.4mg/5ml syringe IV PRN (10:09)
[2024-03-13] MEDS: aminophylline 500mg/20ml vial IV PRN (10:46)
[2024-03-13] MEDS ORDERED: RANO10005 PO (16:41)
[2024-03-13] MEDS ORDERED: NITR0.4T48 SL (16:41)
[2024-03-13] MEDS ORDERED: RANO500T6 PO (16:41)
== END 2024-03-13 17:03 | disposition home or self-care (01) ==
LOC: ER 10:02 → PCU 3S 13:45 → UNDOADMOB 13:45 → ER 15:47 → PCU 3S 15:47 → ER 03-13 06:50 → PCU 3S 03-13 06:51 → UNDOADMOB 03-13 06:51 → UNDODISOB 03-13 17:03
PROVIDERS: ADMIT Internal Medicine; ATTEND Internal Medicine
DX: R07.89 Other chest pain (principal); R68.84 Jaw pain; I12.9 Hypertensive chronic kidney disease with stage 1 through stage 4 chronic kidney disease, or unspecified chronic kidney disease; E11.22 Type 2 diabetes mellitus with diabetic chronic kidney disease; N18.31 Chronic kidney disease, stage 3a; E66.9 Obesity, unspecified; E78.5 Hyperlipidemia, unspecified; I25.10 Atherosclerotic heart disease of native coronary artery without angina pectoris; I21.19 ST elevation (STEMI) myocardial infarction involving other coronary artery of inferior wall; I25.2 Old myocardial infarction; Z87.891 Personal history of nicotine dependence; Z90.49 Acquired absence of other specified parts of digestive tract; Z95.5 Presence of coronary angioplasty implant and graft; Z79.899 Other long term (current) drug therapy; Z68.34 Body mass index [BMI] 34.0-34.9, adult
CPT/HCPCS: 36415; 71045; 78452; 80053; 80061; 82948; 83036; 83880; 84484; 85025; 87081; 93005; 93017; 93306; 96372; 96374; 99285; A9500; G0378; J0280; J1644; J1815; J2785

== ENCOUNTER 2024-07-08 08:25 | Outpatient (CLI) | payer BC ==
[~2024-07-08 08:25] MED LIST changes: +MULT-1249 PO; +RANO10005 PO; -RANO500T3 PO; +RANO500T6 PO; +VITA1CAP PO
[2024-07-08 09:06] LABS: BILIRUBIN,URINE NEGATIVE (Neg); CLARITY,URINE CLEAR (Clear); COLOR,URINE YELLOW (Yellow); GLUCOSE, URINE >=1000 mg/dl (Neg); KETONES,URINE NEGATIVE (Neg); LEUKOCYTE ESTERASE ,URINE NEGATIVE (Neg); NITRITES, URINE NEGATIVE (Neg); OCCULT BLOOD,URINE NEGATIVE (Neg); PROTEIN,URINE NEGATIVE (Neg); UROBILINOGEN,URINE 0.2 E.U/dL (0.2-1.0)
[2024-07-08 09:07] LABS: BASOPHILS # (AUTO) 0.1 X10'3 (0-0.2); BASOPHILS % (AUTO) 0.6 % (0-1); EOSINOPHILS # (AUTO) 0.4 X10'3 (0-0.9); EOSINOPHILS % (AUTO) 3.7 % (0-6); HEMATOCRIT 50.3 % (42.0-52.0); HEMOGLOBIN 17.1 g/dl (14.0-17.9); LYMPHOCYTES # (AUTO) 2.6 X10'3 (1.1-4.8); LYMPHOCYTES % (AUTO) 25.9 % (21-51); MEAN CORPUSCULAR HEMOGLOBIN 32.4 PG (27.0-31.0); MEAN CORPUSCULAR HGB CONC 34.1 g/dL (33.0-36.5); MEAN PLATELET VOLUME 6.8 FL (7.4-10.4); MONOCYTES % (AUTO) 9.7 % (2-12); NEUTROPHILS # (AUTO) 5.9 X10'3 (1.8-7.7); NEUTROPHILS % (AUTO) 60.1 % (42-75); PLATELET COUNT 231 X10'3 (140-440); RED BLOOD COUNT 5.29 X10'6 (4.70-6.10); RED CELL DISTRIBUTION WIDTH 13.3 % (11.5-14.5); WHITE BLOOD COUNT 9.9 X10'3 (4.5-11.0)
[2024-07-08 09:27] LABS: ALANINE AMINOTRANSFERASE 30 U/L (12-78); ALBUMIN 3.8 G/DL (3.4-5.0); ALBUMIN/GLOBULIN RATIO 1.2 (1.1-1.5); ALKALINE PHOSPHATASE 89 IU/L (46-116); ANION GAP 8 (8-16); ASPARTATE AMINO TRANSFERASE 25 U/L (10-37); BILIRUBIN,TOTAL 0.5 MG/DL (0.1-1.0); BLOOD UREA NITROGEN 21 MG/DL (7-18); BUN/CREATININE RATIO 15.1 (10.0-20.0); CALCIUM 8.7 MG/DL (8.5-10.1); CHLORIDE 108 MMOL/L (99-107); CHOLESTEROL 136 MG/DL (0-200); CREATININE 1.39 MG/DL (0.60-1.10); FREE T4 (FREE THYROXINE) 0.88 NG/DL (0.73-1.40); GLUCOSE 120 MG/DL (70-104); HDL CHOLESTEROL 45 MG/DL (35-60); LDL CHOLESTEROL 78 MG/DL (50-100); POTASSIUM 4.5 MMOL/L (3.5-5.1); SODIUM 140 MMOL/L (135-145); TOTAL CARBON DIOXIDE 24.4 MMOL/L (24-32); TRIGLYCERIDES 78 MG/DL (20-135); eGFR 52 ML/MIN
[2024-07-08 09:28] LABS: UA COLLECTION TYPE CLN CATCH MIDSTREAM
[2024-07-08 10:18] LABS: BACTERIA,URINE NONE SEEN /HPF (Neg); MUCUS STRANDS NONE SEEN /LPF (Neg); RBC,URINE 0-2 /HPF (0-2); SQUAMOUS EPITHELIAL CELL,UR NONE SEEN /LPF (FEW); WBC,URINE 0-4 /HPF (0-4)
[2024-07-09 08:39] LABS: PSA, ULTRASENSITIVE W/O SERIAL 0.114 ng/mL (0.000-4.000)
[2024-07-09 11:24] LABS: MICROALBUMIN, RANDOM URINE <3.0 ug/mL (Not Estab.)
== END 2024-07-08 23:59 | disposition home or self-care (01) ==
LOC: LAB 08:25
PROVIDERS: ATTEND Nurse Practitioner Family
DX: Z00.01 Encounter for general adult medical examination with abnormal findings (principal); E78.5 Hyperlipidemia, unspecified; Z13.29 Encounter for screening for other suspected endocrine disorder; E11.9 Type 2 diabetes mellitus without complications; R35.1 Nocturia
CPT/HCPCS: 36415; 80053; 80061; 81001; 82043; 84153; 84439; 84443; 85025

== ENCOUNTER 2024-07-08 09:23 | Outpatient (CLI) | payer BC ==
--- NOTE | 2024-07-08 11:34 | RADIOLOGY REPORT ---
CLINICAL INDICATION: OTHER CHRONIC PAIN TECHNIQUE: Multiplanar, multisequence MRI of the right knee was performed without intravenous contras t. Contrast: None. COMPARISON: None. FINDINGS: Joint space and synovium: There is knee joint effusion. No synovitis. Small farias's cyst measuring 4.1 cm in craniocaudal dimension. Bones and articular cartilage: There is no evidence of acute fracture. Mild edema in the central asp ect of the proximal tibia. The alignment is normal. Patellofemoral articular cartilage is intact. Focal high-grade partial-thickness chondral loss in the central aspect of the lateral tibial plateau . Marked chondral thinning in the posterolateral femur. There is chondral thinning on both sides of t he medial compartment. Tricompartment osteophytes. Menisci: Radial tear of the posterior medial meniscus. Horizontal tear of the anterior horn of the la teral meniscus. Tendons and ligaments: The tendons in the posterior knee are intact. The extensor mechanism is inta ct. The anterior cruciate ligament is thickened and hyperintense. The posterior cruciate ligament is intact. The medial collateral ligament and the lateral collateral ligament stabilizing complex are intact. Iliotibial band is intact. Muscles: Regional muscles are preserved in bulk and signal characteristics. Other: None. IMPRESSION: 1. Radial tear in the posterior horn of the medial meniscus. 2. Horizontal tear of the anterior horn of the lateral meniscus. 3. Multifocal chondral loss most significant in the posterior aspect of the lateral femoral condyle a nd the central lateral tibial plateau. 4. Farias's cyst. Joint effusion.
--- NOTE | 2024-07-08 16:41 | RADIOLOGY REPORT ---
Procedure: MR MRI LOWER EXTREMITY LEFT 07/08/2024 09:55 AM INDICATION: OTHER CHRONIC PAIN COMPARISON: MRI LOWER EXTREMITY RIGHT on DOS: 09/14/22, MRI LOWER EXTREMITY LEFT on DOS: 09/20/21, MRI LOWER EXTREMITY RIGHT on DOS: 11/18/20 TECHNIQUE: MRI was performed utilizing multiple appropriate imaging planes and pulse sequences. FINDINGS: Medial meniscus: Small radial tear of the free edge of the body of the medial meniscus. Lateral meniscus: Inferior surfacing oblique tear of the body of the lateral meniscus noted. Anterior cruciate ligament: Unremarkable. Posterior cruciate ligament: Unremarkable. Medial collateral ligament: Mild thickening and signal alteration of the proximal tibial collateral l igament without discontinuity of the fibers reflecting chronic sprain. Lateral stabilizers: Unremarkable. Extensor mechanism: Unremarkable. Pes anserine Tendons: Unremarkable. Medial compartment: Unremarkable. Lateral compartment: Unremarkable. Patellofemoral compartment: Unremarkable. Bones: No suspicious lesion. Joint Effusion: None. Popliteal fossa: Small Farias's cyst. Other: None. IMPRESSION: 1. Inferior surfacing oblique tear of the body of the lateral meniscus. 2. Small radial tear of the free edge of the body of the medial meniscus. 3. Chronic proximal MCL sprain. 4. Small farias's cyst.
== END 2024-07-08 23:59 | disposition home or self-care (01) ==
LOC: MRI02 09:23
PROVIDERS: ATTEND Nurse Practitioner Family
DX: S83.412A Sprain of medial collateral ligament of left knee, initial encounter (principal); G89.29 Other chronic pain; Z98.890 Other specified postprocedural states; M25.562 Pain in left knee; R53.1 Weakness; S83.242A Other tear of medial meniscus, current injury, left knee, initial encounter; X58.XXXA Exposure to other specified factors, initial encounter; Y93.89 Activity, other specified; Y92.89 Other specified places as the place of occurrence of the external cause; Y99.8 Other external cause status; S83.241A Other tear of medial meniscus, current injury, right knee, initial encounter; Y93.9 Activity, unspecified; M25.461 Effusion, right knee
CPT/HCPCS: 73721

== ENCOUNTER 2025-02-10 05:24 | Day surgery (SDC) | payer BC ==
--- NOTE | 2025-02-04 15:20 | ELECTROCARDIOGRAPH REPORT ---
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 Alfred Campbell Measurements Intervals [place] Rate: 68 P: 73 ME: 158 QRS: 88 QRSD: 108 T: 36 QT: 408 QTc: 434 Interpretive Statements Sinus rhythm Borderline right axis deviation Electronically Signed On 02-05-2025 6:56:[address] Alfred Campbell Please click the below link to view image of tracing.
[2025-02-04 15:41] LABS: MEAN PLATELET VOLUME 6.5 FL (7.4-10.4); PRE OP HEMATOCRIT 49.5 % (42.0-52.0); PRE OP HEMOGLOBIN 16.8 g/dL (14.0-17.9); PRE OP PLATELET COUNT 232 X10'3 (140-440); PRE OP WHITE BLOOD COUNT 7.7 10'3 (4.8-10.8); RED CELL DISTRIBUTION WIDTH 13.5 % (11.5-14.5)
[2025-02-04 17:35] LABS: CREATININE 1.61 MG/DL (0.60-1.10); PRE OP ALT 39 U/L (30-65); PRE OP ANION GAP 7 (8-16); PRE OP AST 25 U/L (10-37); PRE OP BILIRUB, TOTAL 0.4 MG/DL (0.0-1.0); PRE OP GLUCOSE 96 MG/DL (70-104); PRE OP POTASSIUM 4.6 MMOL/L (3.4-5.1); PRE OP SODIUM 141 MMOL/L (135-145); TOTAL CARBON DIOXIDE 28.8 MMOL/L (24-32); eGFR 44 ML/MIN
[~2025-02-10] VITALS: Ht 180.3 cm; Wt 110.5 kg
[2025-02-10] VITALS (8 sets, daily range): BP systolic 92–144; BP diastolic 59–69; PULSE 54–76; RESP 11–16; TEMP 97.6; O2SAT 92–98
[~2025-02-10 05:24] MED LIST changes: +CHOL100017 PO; -EMPA10TA PO; +EMPA25TA PO; -NITR0.4T48 SL; +NITR0.4T51 SL
[2025-02-10] MEDS: VANCOMYCIN/H2O 1.5g/300mL PB 300 ML IV ONE (06:20)
[2025-02-10] MEDS: ringers solution, lacted 1,000 ML IV SCH (06:20)
[2025-02-10] MEDS: DOCUMENT DATE & TIME OF BETA-BLOCKER PO ONE (06:21)
[2025-02-10] MEDS: ceFAZolin 2gm/dext,iso 50mL 50 ML IV ONE (06:21)
[2025-02-10] MEDS ORDERED: HYDROcodone/acetaminophen 10/325mg tab PO PRN ×2 (06:50)
[2025-02-10] MEDS ORDERED: BUPIVAcaine 2.5mg/ml inj 50ml vial (contains preservative) ONE (07:08)
[2025-02-10] MEDS ORDERED: ketorolac trometh 30MG/ML vial 30 MG/ML VIAL ONE (07:08)
[2025-02-10] MEDS ORDERED: LIDOcaine 1% W/epiNEPHrine 1:100,000 20ml vial ONE (07:08)
[2025-02-10] MEDS ORDERED: midazolam 1 mg/ML 2ml injection ONE (07:29)
[2025-02-10] MEDS ORDERED: fentaNYL/PF 50MCG/1 ML 2ML syringe ONE (07:30)
[2025-02-10] MEDS ORDERED: LIDOcaine 2% (20mg/ml) 5ml vial ONE (07:39)
[2025-02-10] MEDS ORDERED: propofol inj 20 ML IV ONE (07:39)
[2025-02-10] MEDS ORDERED: dexamethasone sod phosphate 4mg/ml inj. ONE (07:48)
[2025-02-10] MEDS ORDERED: ePHEDrine 50MG/ML INJ. ONE (07:57)
[2025-02-10] MEDS ORDERED: VITAMIN B COMPLEX PO SCH (08:00)
[2025-02-10] MEDS ORDERED: LIDOcaine 1% (10mg/ml)w/preservative inj. 20ml MDV ONE (08:08)
[2025-02-10] MEDS ORDERED: BUPIVAcaine/PF 5 mg/ml 10ml ONE (08:08)
[2025-02-10] MEDS ORDERED: acetaminophen 1,000mg/100ml IV 100 ML IV ONE (08:11)
[2025-02-10] MEDS ORDERED: ringers solution, lacted 1,000 ML IV SCH (08:30)
[2025-02-10] MEDS ORDERED: HYDROmorphone/PF 0.2 MG/ML SYRINGE IV PRN ×2 (08:30)
[2025-02-10] MEDS ORDERED: enalaprilat 1.25mg/ml 2ml vial IV PRN (08:30)
[2025-02-10] MEDS ORDERED: morphine 4 MG/ML inj SYRINge IV PRN (08:30)
[2025-02-10] MEDS ORDERED: ondansetron/PF 4mg/2ml inj IV PRN (08:30)
[2025-02-10] MEDS ORDERED: fentaNYL/PF 50MCG/1 ML 2ML syringe IV PRN ×2 (08:30)
[2025-02-10] MEDS ORDERED: labetalol 20mg/4ml (5mg/ml) syringe IV PRN (08:30)
--- NOTE | 2025-02-10 08:48 | OPERATIVE REPORT ---
Operative Report Operative Report OPERATIVE REPORT [facility] [address] [place] [address] Date of service: February 10, 2025 PREOPERATIVE DIAGNOSIS M17.6.96 Arthritis of knee, right [id number] Complex tear of lateral meniscus of right knee as current injury, initial encounter [id number] Complex tear of medial meniscus of right knee as current injury, initial encounter POSTOPERATIVE DIAGNOSIS [id number] Arthritis of knee, right S83.271A-836.1 Complex tear of lateral meniscus of right knee as current injury, initial encounter [id number] Complex tear of medial meniscus of right knee as current injury, initial encounter Operation Performed [id number] Arthroscopy, Knee, Meniscectomy, Med or Lat with this modifier: RT Procedure: Right knee arthroscopy with partial medial and lateral meniscectomies Surgeon: Dr. Haley Parking Meter Attendant: None Anesthesiologist: Dr. Rudd Anesthetic: General anesthetic Indications: This patient has chronic right knee pain, with findings on physical examination and MRI scan suggestive of possible meniscus tear. Findings: The medial meniscus had degenerative tearing along the central and posterior portion of the meniscus. The lateral meniscus had some mild degenerative tearing centrally and then also substantial anterior horn flap. The articular surface of the medial femoral condyle had grade 3 chondromalacia. The articular surface of the medial tibial plateau had diffuse grade 3 chondromalacia with small areas of exposed bony. The articular surface of the lateral femoral condyle had grade 2 chondromalacia. The articular surface of the lateral tibial plateau had grade 3 and four chondromalacia with a 1 cm diameter area of exposed bone. The articular surface of the femoral trochlea had grade three chondromalacia The patella had grade 3 chondromalacia . The anterior cruciate ligament was normal. The posterior cruciate ligament was normal. Procedure: The risks, benefits, expected results, and possible complications of the planned procedure had been explained to the patient and informed consent obtained. The surgical site was marked in the preoperative area. The patient was taken to the operating room where local knee block and general anesthetic was performed. A timeout was taken prior to surgery confirming operative side operative site, planned procedure, administration of pre-operative antibiotics, site marking, and presence of all necessary implants and instruments. Arthroscopy was carried out through standard anteromedial, anterolateral, and superolateral portals with findings as noted above. following diagnostic arthroscopy a synovial resector was utilized to remove the torn sections of both medial and lateral menisci and also to do some gentle debridement of the articular surfaces of both femur and tibia Upon completion of arthroscopy the knee was irrigated thoroughly wash out any debris. Wounds were closed with Steri-Strips a sterile dressing was applied and the patient was returned to recovery room in satisfactory condition. Electronically Signed by: Dominic Haley MD Doctor, Orthopedic Surgery Signed on: 02/10/2025 08:47 AM DOMINIC HALEY MD Feb 10, 2025 08:47
[2025-02-10] MEDS ORDERED: ranolazine 500mg SR tablet (Q12H) PO SCH (21:00)
[2025-02-11] MEDS ORDERED: isosorbide mononitrate 30mg tab.SR.24H PO SCH (08:00)
[2025-02-11] MEDS ORDERED: aspirin 325mg tablet, delayed-release (Ecotrin) PO SCH (08:00)
[2025-02-11] MEDS ORDERED: ranolazine 500mg SR tablet (Q12H) PO SCH (08:00)
[2025-02-11] MEDS ORDERED: cholecalciferol (vitamin D3) 1,000 unit (25mcg) tablet PO SCH (08:00)
[2025-02-11] MEDS ORDERED: EMPAGLIFLOZIN 25 MG TABLET PO SCH (08:00)
[2025-02-11] MEDS ORDERED: multivitamins, therapeutics tablet PO SCH (08:00)
== END 2025-02-10 09:24 | disposition home or self-care (01) ==
LOC: PAS 05:24
PROVIDERS: ATTEND Orthopaedic Surgery
DX: S83.231A Complex tear of medial meniscus, current injury, right knee, initial encounter (principal); S83.271A Complex tear of lateral meniscus, current injury, right knee, initial encounter; M17.11 Unilateral primary osteoarthritis, right knee; M22.41 Chondromalacia patellae, right knee; I25.10 Atherosclerotic heart disease of native coronary artery without angina pectoris; E11.9 Type 2 diabetes mellitus without complications; E66.01 Morbid (severe) obesity due to excess calories; E78.5 Hyperlipidemia, unspecified; F32.A Depression, unspecified; I25.2 Old myocardial infarction; M19.90 Unspecified osteoarthritis, unspecified site; Z87.891 Personal history of nicotine dependence; Z79.01 Long term (current) use of anticoagulants; Z79.1 Long term (current) use of non-steroidal anti-inflammatories (NSAID); Z79.82 Long term (current) use of aspirin; Z79.891 Long term (current) use of opiate analgesic; Z79.899 Other long term (current) drug therapy; Z90.49 Acquired absence of other specified parts of digestive tract; Z98.890 Other specified postprocedural states; Z68.34 Body mass index [BMI] 34.0-34.9, adult; Z88.1 Allergy status to other antibiotic agents; Z88.5 Allergy status to narcotic agent; X58.XXXA Exposure to other specified factors, initial encounter; Y93.89 Activity, other specified; Y92.89 Other specified places as the place of occurrence of the external cause; Y99.8 Other external cause status
CPT/HCPCS: 29880; 36415; 80053; 82948; 85025; 93005; J0131; J0665; J1100; J2003; J2250; J2704; J3010; J3375; J3490; J7120; Z7506; Z7508; Z7512; A4215; A4618; A6449; A7000; J1885

== ENCOUNTER 2025-02-25 09:09 | Outpatient (CLI) | payer BC ==
--- NOTE | 2025-02-25 11:06 | RADIOLOGY REPORT ---
INDICATION: CHRONIC KIDNEY DISEASE, STAGE 3 UNSPECIFIED TECHNIQUE: Multiple real-time sonographic images of the kidneys and bladder were obtained. COMPARISON: None FINDINGS: RIGHT kidney measures 10.6 cm in length. No hydronephrosis. LEFT kidney measures 9.1 cm in length. No hydronephrosis. No large intraluminal masses are seen in the bladder. Bilateral ureteral jets visualized. Post void residual of 103 cc. IMPRESSION: Postvoid urinary bladder volume 103 cc.
[2025-02-26 13:29] LABS: CREATININE, URINE 49.9 mg/dL (Not Estab.); MICROALB/CRT, RATIO <6 mg/g creat (0-29); MICROALBUMIN,U,RANDOM <3.0 ug/mL (Not Estab.)
== END 2025-02-25 23:59 | disposition home or self-care (01) ==
LOC: RAD 09:09
PROVIDERS: ATTEND Student in an Organized Health Care Education/Training Program
DX: N18.30 Chronic kidney disease, stage 3 unspecified (principal)
CPT/HCPCS: 36415; 76770; 82043; 82570